=== PATIENT | male | born 1950 | race Caucasian/White ===

== ENCOUNTER 2021-02-08 05:42 | Day surgery (SDC) | payer OTHER ==
[2021-02-07 13:14] VITALS: BMI 28.1
[2021-02-08] MEDS ORDERED: Heparin 10,000 UNITS/ 10 ML VIAL ONE ×2 (06:54→09:55)
[2021-02-08] MEDS ORDERED: Bupivacaine PF 0.5% 30 ML VIAL ONE (06:54)
[2021-02-08] MEDS ORDERED: Lidocaine 1% w/Epinephrine 1:100K 30 ML VIAL ONE (06:54)
[2021-02-08] MEDS ORDERED: Sodium Chloride 0.9% 20 ML ONE ×3 (06:54→11:35)
[2021-02-08] MEDS ORDERED: Lidocaine 1% PF 5 ML VIAL ONE (08:20)
[2021-02-08] MEDS ORDERED: PROPOFOL 200 MG/20 ML VIAL ONE (08:20)
[2021-02-08] MEDS ORDERED: Ondansetron HCl/PF 4 MG/2 ML Vial IVP PRN (08:37)
[2021-02-08] MEDS ORDERED: Promethazine HCl 25 MG/ML VIAL IVPB PRN (08:37)
[2021-02-08] MEDS ORDERED: Promethazine HCl 25 MG/ML VIAL IM PRN (08:37)
[2021-02-08] MEDS ORDERED: Ondansetron PF 4 MG/2 ML Vial IVP PRN (09:06)
[2021-02-08] MEDS ORDERED: Dextrose 50% Abboject 50 ML SYRINGE SLOW IVP PRN (09:06)
[2021-02-08] MEDS ORDERED: hydrALAZINE 20 MG/ML VIAL SLOW IVP PRN (09:06)
[2021-02-08] MEDS ORDERED: HumaLOG 300 UNITS/3 ML VIAL SC PRN ×2 (09:06→09:48)
[2021-02-08] MEDS ORDERED: Dextrose 5% in Water 1,000 ML IV PRN (09:06)
[2021-02-08] MEDS ORDERED: Sodium Chloride 0.9% 10 ML ONE ×2 (10:37→11:16)
[2021-02-08] MEDS ORDERED: Morphine 4 MG/ML VIAL ONE (11:34)
[2021-02-08 11:42] LABS: #Basophils 0.1 thou/uL (0.0-0.2); #Eosinphils 0.2 thou/uL (0.0-0.7); #Lymphocytes 0.9 thou/uL (1.20-3.40); #Monocytes 0.3 thou/uL (0.11-0.59); #Neutrophils 2.8 thou/uL (1.40-6.50); %Basophils 1.3 % (0.0-1.0); %Eosinophils 3.6 % (0.0-10.0); %Lymphocytes 21.7 % (21.0-51.0); %Monocytes 8.1 % (0.0-10.0); %Neutrophils 65.4 % (42.0-75.0); Mean Corpuscular HGB CONC 32.8 g/dL (32.0-36.0); Mean Platelet Volume 8.1 fL (7.4-10.4); Platelet Count 99 thou/uL (130-400); RBC Distribution Width 12.3 % (11.5-14.5); Red Blood Cell (RBC) Count 2.73 mill/uL (4.70-6.10); White Blood Cell (WBC) Count 4.3 thou/uL (4.8-10.8)
[2021-02-08 12:09] LABS: Anion Gap 16 mmol/L (10-20); BUN (Urea Nitrogen) 48 mg/dL (8.4-25.7); Calc. Creatinine Clearance 18 mL/min (70-130); Calcium 8.9 mg/dL (7.8-10.44); Carbon Dioxide 19 mmol/L (23-31); Chloride 109 mmol/L (98-107); Glucose 136 mg/dL (80-115); Potassium 4.9 mmol/L (3.5-5.1); Sodium 139 mmol/L (136-145)
[2021-02-08 12:27] LABS: HBSAg Index 0.32 S/CO (0-0.99); Hep B Surf Ag Non-Reactive S/CO (NonReactive)
[2021-02-08 12:36] LABS: HBSAB Concentration 60.67 mIU/mL; Hep B Surf AB Reactive (NonReactive); Hep C IgG Ab Reflex HepC Qnt (NonReactive); Hep C Index 15.19 S/CO (0-0.79)
[2021-02-08 14:03] LABS: Hep B Core Total Ab Reactive (NonReactive); Hep B Core Total Index 7.66 S/CO (0-0.79)
[2021-02-08] MEDS ORDERED: Benzonatate 100 MG CAP PO SCH (15:00)
[2021-02-08] MEDS ORDERED: hydrALAZINE 25 MG TAB PO SCH (15:00)
[2021-02-08] MEDS ORDERED: Zolpidem Tartrate 5 MG TAB PO SCH (21:00)
[2021-02-08] MEDS ORDERED: Atorvastatin Calcium 40 MG TAB PO SCH (21:00)
[2021-02-08] MEDS ORDERED: Melatonin 3 MG TAB PO SCH (21:00)
[2021-02-08] MEDS ORDERED: cloNIDine 0.1 MG TAB PO SCH (21:00)
[2021-02-08] MEDS ORDERED: Lantus 1000 UNITS/10 ML VIAL SC SCH (21:00)
[2021-02-08] MEDS ORDERED: Heparin 5,000 UNITS/ML VIAL SC SCH (21:00)
[2021-02-09] MEDS ORDERED: Levothyroxine Sodium 125 MCG TAB PO SCH (06:00)
[2021-02-09] MEDS ORDERED: Insulin Glargine 10 UNITS in Pre-Filled Syringe 1 EACH SC SCH (09:00)
[2021-02-09] MEDS ORDERED: Sodium Bicarbonate Tab 325 MG TAB PO SCH (09:00)
[2021-02-09] MEDS ORDERED: Amlodipine 10 MG TAB PO SCH (09:00)
[2021-02-09] MEDS ORDERED: Magnesium Oxide 400 MG TAB PO SCH (09:00)
[2021-02-09] MEDS ORDERED: Clopidogrel Bisulfate 75 MG TAB PO SCH (09:00)
[2021-02-09] MEDS ORDERED: Aspirin Chewable 81 MG TAB PO SCH (09:00)
[2021-02-09] MEDS ORDERED: Tamsulosin HCl 0.4 MG CAP PO SCH (09:00)
[2021-02-09] MEDS ORDERED: Lantus 1000 UNITS/10 ML VIAL SC SCH (09:00)
== END 2021-02-08 19:05 | disposition home or self-care (01) ==
LOC: SDC 05:42
PROVIDERS: ATTEND Specialist
PROC: 05HN33Z Insertion of Infusion Device into Left Internal Jugular Vein, Percutaneous Approach (ICD-10-PCS; principal; 2021-02-08)
PROC: 05HM33Z Insertion of Infusion Device into Right Internal Jugular Vein, Percutaneous Approach (ICD-10-PCS; principal; 2021-02-08)
DX: I13.2 Hypertensive heart and chronic kidney disease with heart failure and with stage 5 chronic kidney disease, or end stage renal disease (principal); E11.22 Type 2 diabetes mellitus with diabetic chronic kidney disease; N18.6 End stage renal disease; I50.9 Heart failure, unspecified; E78.5 Hyperlipidemia, unspecified; I25.10 Atherosclerotic heart disease of native coronary artery without angina pectoris; I25.2 Old myocardial infarction; G47.30 Sleep apnea, unspecified; K74.60 Unspecified cirrhosis of liver; N40.0 Benign prostatic hyperplasia without lower urinary tract symptoms; E78.00 Pure hypercholesterolemia, unspecified; E03.9 Hypothyroidism, unspecified; E87.70 Fluid overload, unspecified; J44.9 Chronic obstructive pulmonary disease, unspecified; M19.90 Unspecified osteoarthritis, unspecified site; Z86.16 Personal history of COVID-19; Z87.891 Personal history of nicotine dependence; Z79.02 Long term (current) use of antithrombotics/antiplatelets; Z79.4 Long term (current) use of insulin; Z79.82 Long term (current) use of aspirin; Z79.899 Other long term (current) drug therapy; Z88.5 Allergy status to narcotic agent; Z95.1 Presence of aortocoronary bypass graft; Z95.5 Presence of coronary angioplasty implant and graft
CPT/HCPCS: 36416; 71045; 80048; 83735; 85025; 86704; 86706; 86803; 87340; 93005; 93010; C1752; J0690; J1644; J2270; J2704; S0020

== ENCOUNTER 2021-02-22 12:08 | Outpatient (CLI) | payer MEDICARE, OTHER ==
[2021-02-23 17:41] LABS: SARS-CoV-2 PCR by NAA Not Detected (NotDetected)
== END 2021-02-22 12:09 | disposition home or self-care (01) ==
LOC: LABBT 12:08
PROVIDERS: ATTEND Specialist
DX: Z01.812 Encounter for preprocedural laboratory examination (principal); N18.6 End stage renal disease; I25.10 Atherosclerotic heart disease of native coronary artery without angina pectoris; Z20.822 Contact with and (suspected) exposure to COVID-19
CPT/HCPCS: U0003; U0005

== ENCOUNTER 2021-02-26 09:42 | Day surgery (SDC) | payer OTHER ==
[2021-02-25 13:57] VITALS: BMI 26.4
[2021-02-26] MEDS ORDERED: ceFAZolin 2 GM/DEX 5% 100 ML BAG ONE (10:33)
[2021-02-26 11:46] LABS: #Eosinphils 0.2 thou/uL (0.0-0.7); #Lymphocytes 0.8 thou/uL (1.20-3.40); #Monocytes 0.4 thou/uL (0.11-0.59); #Neutrophils 2.4 thou/uL (1.40-6.50); %Basophils 1.1 % (0.0-1.0); %Eosinophils 4.2 % (0.0-10.0); %Lymphocytes 20.9 % (21.0-51.0); %Monocytes 11.1 % (0.0-10.0); %Neutrophils 62.7 % (42.0-75.0); Hemoglobin 9.1 g/dL (14.0-18.0); Mean Corpuscular HGB CONC 32.3 g/dL (32.0-36.0); Mean Corpuscular Hemoglobin 32.1 pg (27.0-31.0); Mean Corpuscular Volume 99.5 fL (78.0-98.0); Mean Platelet Volume 8.9 fL (7.4-10.4); Platelet Count 114 thou/uL (130-400); RBC Distribution Width 12.8 % (11.5-14.5); Red Blood Cell (RBC) Count 2.83 mill/uL (4.70-6.10); White Blood Cell (WBC) Count 3.8 thou/uL (4.8-10.8)
[2021-02-26] MEDS ORDERED: Fentanyl 100 MCG/2 ML VIAL ONE (11:54)
[2021-02-26] MEDS ORDERED: SUGAMMADEX SODIUM 200 MG/2 ML VIAL ONE (11:55)
[2021-02-26] MEDS ORDERED: Bupivacaine 0.25% HCL 30 ML VIAL ONE (11:56)
[2021-02-26] MEDS ORDERED: Lidocaine 1% w/Epinephrine 1:100K 20 ML VIAL ONE (11:56)
[2021-02-26] MEDS ORDERED: Heparin 10,000 UNITS/ 10 ML VIAL ONE (11:56)
[2021-02-26 12:00] LABS: BUN (Urea Nitrogen) 21 mg/dL (8.4-25.7); Calc. Creatinine Clearance 26 mL/min (70-130); Calcium 8.7 mg/dL (7.8-10.44); Carbon Dioxide 28 mmol/L (23-31); Chloride 103 mmol/L (98-107); Glucose 135 mg/dL (80-115); Potassium 3.7 mmol/L (3.5-5.1); Sodium 140 mmol/L (136-145)
[2021-02-26] MEDS ORDERED: ePHEDrine 50 MG/ML VIAL ONE (12:01)
[2021-02-26] MEDS ORDERED: Rocuronium Bromide 10 MG/ML (10ML VIAL) ONE (12:01)
[2021-02-26] MEDS ORDERED: Dexamethasone 20 MG/5 ML VIAL ONE (12:01)
[2021-02-26] MEDS ORDERED: Ondansetron PF 4 MG/2 ML Vial ONE (12:01)
[2021-02-26] MEDS ORDERED: Lidocaine 1% PF 5 ML VIAL ONE (12:01)
[2021-02-26] MEDS ORDERED: PROPOFOL 200 MG/20 ML VIAL ONE (12:01)
[2021-02-26] MEDS ORDERED: Glycopyrrolate 0.2 MG/ML 5 ML SYRINGE ONE (12:01)
[2021-02-26 12:03] LABS: Anion Gap 13 mmol/L (10-20)
[2021-02-26] MEDS ORDERED: Promethazine HCl 25 MG/ML VIAL IM PRN (12:58)
[2021-02-26] MEDS ORDERED: Ondansetron HCl/PF 4 MG/2 ML Vial IVP PRN (12:58)
[2021-02-26] MEDS ORDERED: Promethazine HCl 25 MG/ML VIAL IVPB PRN (12:58)
[2021-02-26] MEDS ORDERED: Heparin 1,000 UNITS/ML VIAL ONE (14:14)
== END 2021-02-26 14:34 | disposition home or self-care (01) ==
LOC: SDC 09:42
PROVIDERS: ATTEND Specialist
PROC: 0WHG43Z Insertion of Infusion Device into Peritoneal Cavity, Percutaneous Endoscopic Approach (ICD-10-PCS; principal; 2021-02-26)
DX: I13.11 Hypertensive heart and chronic kidney disease without heart failure, with stage 5 chronic kidney disease, or end stage renal disease (principal); E11.22 Type 2 diabetes mellitus with diabetic chronic kidney disease; N18.6 End stage renal disease; R18.8 Other ascites; I25.10 Atherosclerotic heart disease of native coronary artery without angina pectoris; E78.00 Pure hypercholesterolemia, unspecified; E78.5 Hyperlipidemia, unspecified; J44.9 Chronic obstructive pulmonary disease, unspecified; M19.90 Unspecified osteoarthritis, unspecified site; N40.0 Benign prostatic hyperplasia without lower urinary tract symptoms; Z86.16 Personal history of COVID-19; Z87.891 Personal history of nicotine dependence; Z79.02 Long term (current) use of antithrombotics/antiplatelets; Z79.4 Long term (current) use of insulin; Z79.82 Long term (current) use of aspirin; Z79.899 Other long term (current) drug therapy; Z88.5 Allergy status to narcotic agent; Z95.1 Presence of aortocoronary bypass graft; Z95.5 Presence of coronary angioplasty implant and graft; Z99.2 Dependence on renal dialysis
CPT/HCPCS: 36416; 80048; 85025; J1100; J1644; J2405; J2704; J3010; J3490; S0020

== ENCOUNTER 2022-04-18 13:58 | Inpatient (IN) | payer MEDICARE, OTHER ==
[2022-04-18 14:32] LABS: #Basophils 0.1 thou/uL (0.0-0.2); #Eosinphils 0.2 thou/uL (0.0-0.7); #Lymphocytes 0.7 thou/uL (1.20-3.40); #Monocytes 0.4 thou/uL (0.11-0.59); #Neutrophils 6.2 thou/uL (1.40-6.50); %Basophils 0.7 % (0.0-1.0); %Eosinophils 2.4 % (0.0-10.0); %Lymphocytes 8.7 % (21.0-51.0); %Monocytes 5.8 % (0.0-10.0); %Neutrophils 82.4 % (42.0-75.0); Hemoglobin 6.4 g/dL (14.0-18.0); Mean Corpuscular Hemoglobin 35.2 pg (27.0-31.0); Platelet Count 83 10x3/uL (130-400); RBC Distribution Width 17.5 % (11.5-14.5); Red Blood Cell (RBC) Count 1.83 mill/uL (4.70-6.10); White Blood Cell (WBC) Count 7.5 10x3/uL (4.8-10.8)
[2022-04-18 14:54] LABS: ALT (SGPT) 27 U/L (8-55); AST (SGOT) 34 U/L (5-34); Albumin 3.1 g/dL (3.4-4.8); Alkaline Phosphatase 93 U/L (40-110); Anion Gap 21 mmol/L (10-20); BUN (Urea Nitrogen) 101 mg/dL (8.4-25.7); Bilirubin, Total 0.4 mg/dL (0.2-1.2); Calc. Creatinine Clearance 0 mL/min (70-130); Calcium 8.1 mg/dL (7.8-10.44); Carbon Dioxide 20 mmol/L (23-31); Chloride 96 mmol/L (98-107); Estimated GFR 6; Globulin 3.4 g/dL (2.4-3.5); Lipase 136 U/L (8-78); Potassium 3.7 mmol/L (3.5-5.1); Protein, Total 6.5 g/dL (5.8-8.1); Sodium 133 mmol/L (136-145)
[2022-04-18 15:07] LABS: Glucose 413 mg/dL (83-110)
[2022-04-18] MEDS ORDERED: Epoetin 40,000 UNITS/ML VIAL SC SCH (15:15)
[2022-04-18 15:25] LABS: CKMB 17.9 ng/mL (0-6.6)
[2022-04-18] MEDS ORDERED: Acetaminophen 325 MG TAB PO PRN (16:14)
[2022-04-18] MEDS ORDERED: Dextrose 5% in Water 1,000 ML IV PRN (16:21)
[2022-04-18] MEDS ORDERED: Dextrose 50% Abboject 50 ML SYRINGE SLOW IVP PRN (16:21)
[2022-04-18] MEDS ORDERED: Lactated Ringer's 500 ML IV SCH (16:45)
[2022-04-18] MEDS ORDERED: EPOETIN ALFA-EPBX (ESRD) 10,000 UNIT/ML VIAL SC SCH (18:00)
[2022-04-18 19:05] VITALS: BMI 27.0
[2022-04-18] MEDS ORDERED: Heparin 1,000 UNITS/ML (10 ml) 6,000 UNITS in PERITON.DIALYSIS 7-2.5 % DEXTR 6,000 ML FS SCH (19:30)
[2022-04-18 19:52] LABS: Troponin I 0.873 ng/mL (< 0.028)
[2022-04-18] MEDS: Insulin Glargine 30 UNITS/0.3 ML VIAL SC SCH (21:28)
[2022-04-19] MEDS: cefTRIAXone\\ROCEPHIN 2 GM in Sodium Chloride 0.9% 100 ML IVPB SCH ×2 (00:04→17:10)
[2022-04-19 02:15] LABS: Troponin I 2.158 ng/mL (< 0.028)
[2022-04-19] MEDS: Levothyroxine Sodium 125 MCG TAB PO SCH (05:25)
[2022-04-19] MEDS: HumaLOG 300 UNITS/3 ML VIAL SC PRN ×2 (06:18→17:10)
[2022-04-19 08:16] LABS: #Eosinphils 0.3 thou/uL (0.0-0.7); #Lymphocytes 0.6 thou/uL (1.20-3.40); #Monocytes 0.7 thou/uL (0.11-0.59); #Neutrophils 3.8 thou/uL (1.40-6.50); %Basophils 0.8 % (0.0-1.0); %Lymphocytes 11.6 % (21.0-51.0); %Monocytes 11.9 % (0.0-10.0); %Neutrophils 70.6 % (42.0-75.0); Hemoglobin 8.4 g/dL (14.0-18.0); Mean Corpuscular HGB CONC 33.4 g/dL (32.0-36.0); Mean Corpuscular Hemoglobin 32.8 pg (27.0-31.0); Mean Corpuscular Volume 98.1 fl (78.0-98.0); Mean Platelet Volume 8.4 fL (7.4-10.4); Platelet Count 71 10x3/uL (130-400); RBC Distribution Width 17.6 % (11.5-14.5); Red Blood Cell (RBC) Count 2.57 mill/uL (4.70-6.10); White Blood Cell (WBC) Count 5.4 10x3/uL (4.8-10.8)
[2022-04-19 08:20] LABS: Anion Gap 19 mmol/L (10-20); BUN (Urea Nitrogen) 92 mg/dL (8.4-25.7); BUN/Creatinine Ratio 11.18; CK (CPK) 264 U/L (30-200); Calc. Creatinine Clearance 9 mL/min (70-130); Calcium 8.2 mg/dL (7.8-10.44); Carbon Dioxide 24 mmol/L (23-31); Chloride 101 mmol/L (98-107); Estimated GFR 6; Glucose 134 mg/dL (83-110); Phosphorus 7.4 mg/dL (2.3-4.7); Potassium 3.6 mmol/L (3.5-5.1); Sodium 140 mmol/L (136-145)
[2022-04-19 08:36] LABS: Troponin I 5.234 ng/mL (< 0.028)
[2022-04-19 09:00] LABS: BF Color Colorless; Clarity Clear (Clear); Tube # 1
[2022-04-19 09:01] LABS: RBC Count-Automated (BF) 193 /cu.mm; WBC/Nucleated-Auto (BF) 2672 /cu.mm
[2022-04-19 09:06] LABS: BF Segmented Neutrophils 84 %; Cell Count Non Hematic 4 %; Eosinophils 2 %; Lymphocytes 10 %
[2022-04-19] MEDS: Insulin Glargine 30 UNITS/0.3 ML VIAL SC SCH ×2 (09:08→20:54)
[2022-04-19 11:24] LABS: Iron Binding Capacity, Total 348 mcg/dL (261-462)
[2022-04-19 11:25] LABS: Iron 68 ug/dL (65-175)
[2022-04-19 11:36] LABS: Critical Call Chem Troponin I RESULT DECREASING
[2022-04-19 11:54] LABS: CKMB 19.1 ng/mL (0-6.6)
[2022-04-19] MEDS ORDERED: Pantoprazole 40 MG VIAL IVP SCH (12:45)
[2022-04-19] MEDS ORDERED: Benzonatate 100 MG CAP PO PRN (17:37)
[2022-04-19] MEDS: Pantoprazole 40 MG VIAL IVP SCH (20:56)
[2022-04-20] MEDS: Levothyroxine Sodium 125 MCG TAB PO SCH (05:07)
[2022-04-20 05:11] LABS: #Eosinphils 0.3 thou/uL (0.0-0.7); #Lymphocytes 0.8 thou/uL (1.20-3.40); #Monocytes 0.7 thou/uL (0.11-0.59); #Neutrophils 4.3 thou/uL (1.40-6.50); %Basophils 0.5 % (0.0-1.0); %Eosinophils 5.5 % (0.0-10.0); %Lymphocytes 13.1 % (21.0-51.0); %Neutrophils 68.9 % (42.0-75.0); Hemoglobin 8.6 g/dL (14.0-18.0); Mean Corpuscular HGB CONC 33.2 g/dL (32.0-36.0); Mean Corpuscular Hemoglobin 32.7 pg (27.0-31.0); Mean Corpuscular Volume 98.5 fl (78.0-98.0); Mean Platelet Volume 8.2 fL (7.4-10.4); Platelet Count 80 10x3/uL (130-400); RBC Distribution Width 17.5 % (11.5-14.5); Red Blood Cell (RBC) Count 2.64 mill/uL (4.70-6.10); White Blood Cell (WBC) Count 6.2 10x3/uL (4.8-10.8)
[2022-04-20 05:20] LABS: INR-International Normal Ratio 1.2; Prothrombin Time 15.4 sec (12.0-14.7)
[2022-04-20 05:33] LABS: Anion Gap 22 mmol/L (10-20); BUN (Urea Nitrogen) 90 mg/dL (8.4-25.7); Calc. Creatinine Clearance 10 mL/min (70-130); Calcium 7.8 mg/dL (7.8-10.44); Carbon Dioxide 21 mmol/L (23-31); Chloride 98 mmol/L (98-107); Estimated GFR 7; Glucose 251 mg/dL (83-110); Potassium 3.6 mmol/L (3.5-5.1); Sodium 137 mmol/L (136-145)
[2022-04-20 05:47] LABS: HBSAg Index 0.25 S/CO (0-0.99); Hep B Surf Ag Non-Reactive S/CO (NonReactive)
[2022-04-20 05:51] LABS: HBSAB Concentration 17.82 mIU/mL; Hep B Surf AB Reactive (NonReactive)
[2022-04-20] MEDS: HumaLOG 300 UNITS/3 ML VIAL SC PRN ×2 (06:06→12:56)
[2022-04-20] MEDS: Insulin Glargine 30 UNITS/0.3 ML VIAL SC SCH ×2 (09:31→21:00)
[2022-04-20] MEDS: Pantoprazole 40 MG VIAL IVP SCH ×3 (09:32→21:01)
[2022-04-20] MEDS ORDERED: GoLYTELY 4,000 ml Bottle PO SCH (14:00)
[2022-04-20] MEDS: cefTRIAXone\\ROCEPHIN 2 GM in Sodium Chloride 0.9% 100 ML IVPB SCH (16:56)
[2022-04-20] MEDS: tiZANidine HCl 4 MG TAB PO SCH (21:00)
[2022-04-21] MEDS: Levothyroxine Sodium 125 MCG TAB PO SCH (05:21)
[2022-04-21 05:23] LABS: Anion Gap 21 mmol/L (10-20); BUN (Urea Nitrogen) 81 mg/dL (8.4-25.7); Calc. Creatinine Clearance 10 mL/min (70-130); Calcium 7.5 mg/dL (7.8-10.44); Carbon Dioxide 23 mmol/L (23-31); Chloride 99 mmol/L (98-107); Estimated GFR 7; Glucose 120 mg/dL (83-110); Potassium 2.8 mmol/L (3.5-5.1); Sodium 140 mmol/L (136-145)
[2022-04-21 05:24] LABS: Band 3 % (5-11); Eosinophils 8 % (0-10); Hemoglobin 8.2 g/dL (14.0-18.0); Lymphocytes 14 % (21-51); MDiff Complete? YES; Mean Corpuscular HGB CONC 33.4 g/dL (32.0-36.0); Mean Corpuscular Hemoglobin 32.8 pg (27.0-31.0); Mean Corpuscular Volume 98.2 fl (78.0-98.0); Mean Platelet Volume 8.5 fL (7.4-10.4); Monocytes 11 % (0-10); Myelocyte 1 % (0-0); Neutrophil 63 % (42-75); Platelet Count 76 10x3/uL (130-400); Platelet Morphology Comment Appears Decreased; RBC Distribution Width 16.9 % (11.5-14.5); Red Blood Cell (RBC) Count 2.51 mill/uL (4.70-6.10); White Blood Cell (WBC) Count 4.2 10x3/uL (4.8-10.8)
[2022-04-21] MEDS ORDERED: Potassium Chloride 40 MEQ in Premix Bag 1 BAG IVPB SCH (08:15)
[2022-04-21] MEDS: Pantoprazole 40 MG VIAL IVP SCH ×2 (08:20→21:22)
[2022-04-21] MEDS: Insulin Glargine 30 UNITS/0.3 ML VIAL SC SCH (08:22)
[2022-04-21] MEDS: Potassium Chloride 20 MEQ in Premix Bag 1 BAG IVPB SCH ×2 (08:58→12:34)
[2022-04-21] MEDS ORDERED: PROPOFOL 200 MG/20 ML VIAL ONE (11:23)
[2022-04-21] MEDS ORDERED: ePHEDrine 50 MG/ML VIAL ONE (11:23)
[2022-04-21] MEDS ORDERED: Phenylephrine 10 MG/ML VIAL ONE (11:23)
[2022-04-21] MEDS ORDERED: Promethazine HCl 25 MG/ML VIAL IVPB PRN ×2 (11:44→12:24)
[2022-04-21] MEDS ORDERED: Promethazine HCl 25 MG/ML VIAL IM PRN ×2 (11:44→12:24)
[2022-04-21] MEDS ORDERED: Ondansetron HCl/PF 4 MG/2 ML Vial IVP PRN ×2 (11:44→12:24)
[2022-04-21] MEDS: Calcium Acetate 667 MG CAP PO SCH ×2 (13:27→16:54)
[2022-04-21] MEDS: cefTRIAXone\\ROCEPHIN 2 GM in Sodium Chloride 0.9% 100 ML IVPB SCH (16:55)
[2022-04-21] MEDS: HumaLOG 300 UNITS/3 ML VIAL SC PRN (17:23)
[2022-04-21] MEDS ORDERED: HumaLOG 300 UNITS/3 ML VIAL SC PRN (20:30)
[2022-04-21] MEDS: tiZANidine HCl 4 MG TAB PO SCH (21:23)
[2022-04-22 04:37] LABS: #Eosinphils 0.1 thou/uL (0.0-0.7); #Lymphocytes 0.6 thou/uL (1.20-3.40); #Monocytes 0.5 thou/uL (0.11-0.59); #Neutrophils 3.1 thou/uL (1.40-6.50); %Basophils 0.4 % (0.0-1.0); %Eosinophils 3.1 % (0.0-10.0); %Lymphocytes 13.1 % (21.0-51.0); %Monocytes 11.2 % (0.0-10.0); %Neutrophils 72.2 % (42.0-75.0); Hemoglobin 7.6 g/dL (14.0-18.0); Mean Corpuscular HGB CONC 32.9 g/dL (32.0-36.0); Mean Corpuscular Hemoglobin 32.9 pg (27.0-31.0); Mean Platelet Volume 8.2 fL (7.4-10.4); Platelet Count 69 10x3/uL (130-400); RBC Distribution Width 17.1 % (11.5-14.5); Red Blood Cell (RBC) Count 2.31 mill/uL (4.70-6.10); White Blood Cell (WBC) Count 4.3 10x3/uL (4.8-10.8)
[2022-04-22 04:52] LABS: Anion Gap 17 mmol/L (10-20); BUN (Urea Nitrogen) 75 mg/dL (8.4-25.7); Calc. Creatinine Clearance 10 mL/min (70-130); Carbon Dioxide 22 mmol/L (23-31); Chloride 97 mmol/L (98-107); Potassium 3.1 mmol/L (3.5-5.1); Sodium 133 mmol/L (136-145)
[2022-04-22 04:53] LABS: Calcium 7.1 mg/dL (7.8-10.44); Cardiac Risk 4.1 (Less than 4.5); Cholesterol 99 mg/dl (< 200 Desired); Estimated GFR 7; HDL Cholesterol 24 mg/dL (>60 Neg Risk); LDL Cholesterol, Calculated 55 mg/dL; Triglycerides 99 mg/dL (Less than 150)
[2022-04-22 04:56] LABS: Glucose 486 mg/dL (83-110)
[2022-04-22] MEDS: HumaLOG 300 UNITS/3 ML VIAL SC PRN ×3 (06:30→17:36)
[2022-04-22] MEDS: Levothyroxine Sodium 125 MCG TAB PO SCH (06:33)
[2022-04-22] MEDS: Calcium Acetate 667 MG CAP PO SCH ×3 (08:00→17:35)
[2022-04-22] MEDS ORDERED: Potassium Chloride 40 MEQ in Premix Bag 1 BAG IVPB SCH (08:00)
[2022-04-22] MEDS ORDERED: Regadenoson 0.4 MG/5 ML SYRINGE ONE (08:30)
[2022-04-22 08:52] LABS: Body Fluid Source Peritoneal Fluid
[2022-04-22] MEDS ORDERED: EPOETIN ALFA-EPBX (ESRD) 10,000 UNIT/ML VIAL SC SCH (09:00)
[2022-04-22] MEDS: Insulin Glargine 30 UNITS/0.3 ML VIAL SC SCH ×2 (09:22→21:00)
[2022-04-22] MEDS: Pantoprazole 40 MG VIAL IVP SCH ×2 (09:42→21:01)
[2022-04-22] MEDS: Potassium Chloride 20 MEQ in Premix Bag 1 BAG IVPB SCH ×2 (13:40→14:16)
[2022-04-22] MEDS: cefTRIAXone\\ROCEPHIN 2 GM in Sodium Chloride 0.9% 100 ML IVPB SCH (17:35)
[2022-04-22] MEDS: tiZANidine HCl 4 MG TAB PO SCH (21:01)
[2022-04-23 04:47] LABS: #Basophils 0.1 thou/uL (0.0-0.2); #Eosinphils 0.3 thou/uL (0.0-0.7); #Lymphocytes 0.6 thou/uL (1.20-3.40); #Monocytes 0.5 thou/uL (0.11-0.59); #Neutrophils 2.8 thou/uL (1.40-6.50); %Basophils 1.2 % (0.0-1.0); %Eosinophils 7.3 % (0.0-10.0); %Lymphocytes 14.9 % (21.0-51.0); %Monocytes 10.7 % (0.0-10.0); %Neutrophils 65.9 % (42.0-75.0); Hemoglobin 8.6 g/dL (14.0-18.0); Mean Corpuscular HGB CONC 33.7 g/dL (32.0-36.0); Mean Corpuscular Hemoglobin 34.3 pg (27.0-31.0); Mean Platelet Volume 8.1 fL (7.4-10.4); Platelet Count 71 10x3/uL (130-400); RBC Distribution Width 16.7 % (11.5-14.5); Red Blood Cell (RBC) Count 2.51 mill/uL (4.70-6.10); White Blood Cell (WBC) Count 4.2 10x3/uL (4.8-10.8)
[2022-04-23 04:54] LABS: Anion Gap 18 mmol/L (10-20); BUN (Urea Nitrogen) 69 mg/dL (8.4-25.7); Calc. Creatinine Clearance 10 mL/min (70-130); Calcium 7.9 mg/dL (7.8-10.44); Carbon Dioxide 23 mmol/L (23-31); Chloride 104 mmol/L (98-107); Estimated GFR 7; Glucose 276 mg/dL (83-110); Potassium 3.4 mmol/L (3.5-5.1); Sodium 142 mmol/L (136-145)
[2022-04-23] MEDS: Levothyroxine Sodium 125 MCG TAB PO SCH (05:39)
[2022-04-23] MEDS: HumaLOG 300 UNITS/3 ML VIAL SC PRN ×2 (05:40→12:07)
[2022-04-23] MEDS ORDERED: Potassium Chloride 20 MEQ TAB PO SCH (08:00)
[2022-04-23] MEDS: Calcium Acetate 667 MG CAP PO SCH ×2 (09:52→12:03)
[2022-04-23] MEDS: Insulin Glargine 30 UNITS/0.3 ML VIAL SC SCH (09:53)
[2022-04-23] MEDS: Pantoprazole 40 MG VIAL IVP SCH (09:53)
[2022-04-23 11:51] VITALS: BP 135/63; TEMP 98.1
[2022-04-23] MEDS ORDERED: Benzonatate 100 MG CAP PO PRN (13:35)
[2022-04-23] MEDS ORDERED: CeleCOXIB 100 MG CAP PO PRN (13:51)
[2022-04-23] MEDS ORDERED: Tamsulosin HCl 0.4 MG CAP PO SCH (17:00)
[2022-04-23] MEDS ORDERED: Nortriptyline 10 MG CAP PO SCH (21:00)
[2022-04-23] MEDS ORDERED: Gabapentin 300 MG CAP PO SCH (21:00)
[2022-04-23] MEDS ORDERED: Atorvastatin Calcium 40 MG TAB PO SCH (21:00)
[2022-04-23] MEDS ORDERED: HumuLIN 70/30 (300 UNITS/3 ML VIAL) SC SCH (21:00)
[2022-04-23] MEDS ORDERED: Zolpidem Tartrate 5 MG TAB PO SCH (21:00)
[2022-04-24] MEDS ORDERED: Aspirin Chewable 81 MG TAB PO SCH (09:00)
[2022-04-24] MEDS ORDERED: Calcitriol 0.25 MCG CAP PO SCH (09:00)
[2022-04-24] MEDS ORDERED: Fish Oil 1,000 MG CAP PO SCH (09:00)
[2022-04-24] MEDS ORDERED: Multivitamin W/ Minerals 1 TAB PO SCH (09:00)
[2022-04-24] MEDS ORDERED: Furosemide 40 MG TAB PO SCH (09:00)
[2022-04-24] MEDS ORDERED: HumuLIN 70/30 (300 UNITS/3 ML VIAL) SC SCH (09:00)
== END 2022-04-23 15:30 | disposition home or self-care (01) | DRG 377 ==
LOC: ERS 13:58 → 2NO 16:06
PROVIDERS: ADMIT Hospitalist; ATTEND Internal Medicine
PROC: 30233N1 Transfusion of Nonautologous Red Blood Cells into Peripheral Vein, Percutaneous Approach (ICD-10-PCS; principal; 2022-04-18)
PROC: 0W3P8ZZ Control Bleeding in Gastrointestinal Tract, Via Natural or Artificial Opening Endoscopic (ICD-10-PCS; 2022-04-21)
PROC: 0DJD8ZZ Inspection of Lower Intestinal Tract, Via Natural or Artificial Opening Endoscopic (ICD-10-PCS; 2022-04-21)
DX: K31.811 Angiodysplasia of stomach and duodenum with bleeding (principal); I21.A1 Myocardial infarction type 2; N18.6 End stage renal disease; D62 Acute posthemorrhagic anemia; K76.6 Portal hypertension; I13.2 Hypertensive heart and chronic kidney disease with heart failure and with stage 5 chronic kidney disease, or end stage renal disease; I50.32 Chronic diastolic (congestive) heart failure; I85.10 Secondary esophageal varices without bleeding; D69.6 Thrombocytopenia, unspecified; E11.22 Type 2 diabetes mellitus with diabetic chronic kidney disease; E11.65 Type 2 diabetes mellitus with hyperglycemia; K70.30 Alcoholic cirrhosis of liver without ascites; D63.1 Anemia in chronic kidney disease; K31.89 Other diseases of stomach and duodenum; K57.30 Diverticulosis of large intestine without perforation or abscess without bleeding; K64.4 Residual hemorrhoidal skin tags; K64.8 Other hemorrhoids; I25.10 Atherosclerotic heart disease of native coronary artery without angina pectoris; Z99.2 Dependence on renal dialysis; Z95.1 Presence of aortocoronary bypass graft; Z87.891 Personal history of nicotine dependence; Z79.899 Other long term (current) drug therapy; Z79.51 Long term (current) use of inhaled steroids; Z79.4 Long term (current) use of insulin; Z79.82 Long term (current) use of aspirin; Z95.5 Presence of coronary angioplasty implant and graft; Z90.49 Acquired absence of other specified parts of digestive tract; I25.2 Old myocardial infarction
CPT/HCPCS: 36415; 36416; 36430; 71045; 78452; 80048; 80053; 80061; 80069; 82274; 82550; 82553; 82728; 83540; 83550; 83690; 84484; 85025; 85060; 85610; 86706; 86850; 86900; 86901; 87070; 87205; 87340; 89051; 90945; 93005; 93010; 93017; 93306; 93798; 96372; A9500; C9113; G0257; J0696; J0885; J1610; J1815; J2370; J2704; J2785; J3480; J3490; J7120; P9016; Q5105; U0003; U0005

== ENCOUNTER 2022-08-18 10:53 | Inpatient (IN) | payer OTHER ==
[2022-08-18 11:41] LABS: INR-International Normal Ratio 1.1; Prothrombin Time 14.9 sec (12.0-14.7)
[2022-08-18 11:42] LABS: PTT 31.3 sec (22.9-36.1)
[2022-08-18 11:47] LABS: ALT (SGPT) 19 U/L (8-55); AST (SGOT) 32 U/L (5-34); Albumin 2.8 g/dL (3.4-4.8); Alkaline Phosphatase 100 U/L (40-110); Anion Gap 19 mmol/L (10-20); BUN (Urea Nitrogen) 65 mg/dL (8.4-25.7); Bilirubin, Total 0.4 mg/dL (0.2-1.2); Calc. Creatinine Clearance 0 mL/min (70-130); Carbon Dioxide 18 mmol/L (23-31); Chloride 95 mmol/L (98-107); Estimated GFR 10; Globulin 3.3 g/dL (2.4-3.5); Glucose 288 mg/dL (83-110); Magnesium 1.6 mg/dL (1.6-2.6); Potassium 3.3 mmol/L (3.5-5.1); Protein, Total 6.1 g/dL (5.8-8.1); Sodium 129 mmol/L (136-145)
[2022-08-18 11:55] LABS: Hemoglobin 7.2 g/dL (14.0-18.0); Mean Corpuscular HGB CONC 32.9 g/dL (32.0-36.0); Mean Corpuscular Volume 91.2 fl (78.0-98.0); White Blood Cell (WBC) Count 8.7 10x3/uL (4.8-10.8)
[2022-08-18 11:57] LABS: #Basophils 0.1 thou/uL (0.0-0.2); #Eosinphils 0.2 thou/uL (0.0-0.7); #Lymphocytes 0.6 thou/uL (1.20-3.40); #Monocytes 0.7 thou/uL (0.11-0.59); #Neutrophils 7.2 thou/uL (1.40-6.50); %Basophils 1.2 % (0.0-1.0); %Lymphocytes 6.3 % (21.0-51.0); %Monocytes 7.5 % (0.0-10.0); Mean Platelet Volume 8.9 fL (7.4-10.4); Platelet Count 113 10x3/uL (130-400); Platelet Morphology Comment Appears Decreased
[2022-08-18] MEDS ORDERED: cefTRIAXone (ROCEPHIN) 2 GM VIAL ONE (12:00)
[2022-08-18] MEDS ORDERED: Azithromycin 500 MG VIAL ONE (12:35)
[2022-08-18 13:54] LABS: SARS-CoV-2 NAA Rapid Test Not Detected (NotDetected)
[2022-08-18 14:27] LABS: Lactic Acid 1.4 mmol/L (0.5-2.2)
[2022-08-18] MEDS ORDERED: Pantoprazole 80 MG, Admixture Fee 1 EACH in Sodium Chloride 0.9% 100 ML IVPB SCH (14:30)
[2022-08-18] MEDS ORDERED: Dextrose 5% in Water 1,000 ML IV PRN (14:42)
[2022-08-18] MEDS ORDERED: Acetaminophen 325 MG TAB PO PRN (14:42)
[2022-08-18] MEDS ORDERED: Dextrose 50% Abboject 50 ML SYRINGE SLOW IVP PRN (14:42)
[2022-08-18] MEDS ORDERED: Ondansetron PF 4 MG/2 ML Vial IVP PRN (14:42)
[2022-08-18] MEDS ORDERED: HumaLOG 300 UNITS/3 ML VIAL SC PRN (14:44)
[2022-08-18] MEDS ORDERED: Octreotide Acetate 1,250 MCG in Sodium Chloride 0.9% 250 ML 250 ML IVPB SCH (14:45)
[2022-08-18] MEDS ORDERED: Octreotide Acetate 50 MCG in Sodium Chloride 0.9% 50 ML IVPB SCH (14:45)
[2022-08-18] MEDS ORDERED: Octreotide Acetate 500 MCG/ML VIAL ONE (14:51)
[2022-08-18] MEDS ORDERED: Pantoprazole 40 MG VIAL ONE (14:51)
[2022-08-18] MEDS ORDERED: Potassium Chloride 40 MEQ in Premix Bag 1 BAG IVPB SCH (15:15)
[2022-08-18] MEDS ORDERED: Potassium Chloride 20 MEQ in Premix Bag 1 BAG IVPB SCH (16:30)
[2022-08-18 16:46] VITALS: BMI 25.6
[2022-08-18] MEDS ORDERED: Potassium Chloride 20 MEQ TAB PO SCH (17:45)
[2022-08-18] MEDS ORDERED: Gentamicin TOPICAL Ointment 0.1% 15 gm Tube TOP SCH (20:45)
[2022-08-18] MEDS ORDERED: Nortriptyline 10 MG CAP PO SCH (21:00)
[2022-08-18] MEDS ORDERED: Zolpidem Tartrate 5 MG TAB PO SCH (21:00)
[2022-08-18] MEDS: Atorvastatin Calcium 40 MG TAB PO SCH (21:17)
[2022-08-18] MEDS: Pantoprazole 40 MG VIAL IVP SCH (21:17)
[2022-08-18] MEDS: Gabapentin 300 MG CAP PO SCH (21:18)
[2022-08-18] MEDS: HumuLIN 70/30 (300 UNITS/3 ML VIAL) SC SCH (22:07)
[2022-08-18 23:54] LABS: HBSAg Index 0.22 S/CO (0-0.99); Hep B Surf Ag Non-Reactive S/CO (NonReactive)
[2022-08-19 00:05] LABS: HBSAB Concentration 13.41 mIU/mL; Hep B Core Total Ab Reactive (NonReactive); Hep B Core Total Index 7.61 S/CO (0-0.79); Hep B Surf AB Reactive (NonReactive); Hep C IgG Ab Reflex HepC Qnt (NonReactive)
[2022-08-19 01:21] LABS: Hep C Index 13.41 S/CO (0-0.79)
[2022-08-19 05:42] LABS: #Basophils 0.1 thou/uL (0.0-0.2); #Eosinphils 0.1 thou/uL (0.0-0.7); #Lymphocytes 0.5 thou/uL (1.20-3.40); #Monocytes 0.5 thou/uL (0.11-0.59); #Neutrophils 3.2 thou/uL (1.40-6.50); %Basophils 1.5 % (0.0-1.0); %Eosinophils 3.4 % (0.0-10.0); %Lymphocytes 10.9 % (21.0-51.0); %Monocytes 11.5 % (0.0-10.0); %Neutrophils 72.7 % (42.0-75.0); Hemoglobin 6.5 g/dL (14.0-18.0); Mean Corpuscular HGB CONC 34.1 g/dL (32.0-36.0); Mean Corpuscular Hemoglobin 30.7 pg (27.0-31.0); Mean Corpuscular Volume 89.9 fl (78.0-98.0); Mean Platelet Volume 8.7 fL (7.4-10.4); Platelet Count 86 10x3/uL (130-400); RBC Distribution Width 15.2 % (11.5-14.5); Red Blood Cell (RBC) Count 2.13 mill/uL (4.70-6.10); White Blood Cell (WBC) Count 4.4 10x3/uL (4.8-10.8)
[2022-08-19 05:58] LABS: Anion Gap 15 mmol/L (10-20); BUN (Urea Nitrogen) 62 mg/dL (8.4-25.7); Calc. Creatinine Clearance 13 mL/min (70-130); Calcium 7.6 mg/dL (7.8-10.44); Carbon Dioxide 22 mmol/L (23-31); Chloride 97 mmol/L (98-107); Estimated GFR 11; Glucose 274 mg/dL (83-110); Potassium 3.2 mmol/L (3.5-5.1); Sodium 131 mmol/L (136-145)
[2022-08-19] MEDS: HumaLOG 300 UNITS/3 ML VIAL SC PRN (06:26)
[2022-08-19] MEDS: Calcitriol 0.25 MCG CAP PO SCH (08:20)
[2022-08-19] MEDS: HumuLIN 70/30 (300 UNITS/3 ML VIAL) SC SCH ×2 (08:21→20:58)
[2022-08-19] MEDS: Pantoprazole 40 MG VIAL IVP SCH ×2 (08:22→20:57)
[2022-08-19] MEDS ORDERED: EPOETIN ALFA-EPBX (ESRD) 10,000 UNIT/ML VIAL SC SCH (09:00)
[2022-08-19] MEDS ORDERED: Furosemide 40 MG TAB PO SCH (09:00)
[2022-08-19] MEDS: Nortriptyline 10 MG CAP PO SCH ×2 (11:45→20:57)
[2022-08-19] MEDS: Benzonatate 100 MG CAP PO PRN ×2 (11:45→20:57)
[2022-08-19] MEDS ORDERED: Guaifenesin DM 100-10/5 ML UDCUP PO PRN (15:00)
[2022-08-19 15:50] LABS: Hemoglobin 10.1 g/dL (14.0-18.0)
[2022-08-19] MEDS ORDERED: PERITON DIALYSIS FS SCH (17:00)
[2022-08-19] MEDS ORDERED: HEPARIN FS SCH (17:00)
[2022-08-19] MEDS: Levothyroxine Sodium 125 MCG TAB PO SCH (17:52)
[2022-08-19] MEDS: Tamsulosin HCl 0.4 MG CAP PO SCH (17:52)
[2022-08-19] MEDS: Atorvastatin Calcium 40 MG TAB PO SCH (20:55)
[2022-08-19] MEDS: Gabapentin 300 MG CAP PO SCH (20:56)
[2022-08-19] MEDS: Mirtazapine 15 MG Soltab PO SCH (20:56)
[2022-08-20] MEDS: Gentamicin TOPICAL Ointment 0.1% 15 gm Tube TOP SCH ×2 (01:13→21:43)
[2022-08-20 05:00] LABS: #Eosinphils 0.2 thou/uL (0.0-0.7); #Lymphocytes 0.7 thou/uL (1.20-3.40); #Monocytes 0.8 thou/uL (0.11-0.59); #Neutrophils 4.5 thou/uL (1.40-6.50); %Basophils 0.1 % (0.0-1.0); %Eosinophils 3.8 % (0.0-10.0); %Lymphocytes 11.7 % (21.0-51.0); %Monocytes 12.4 % (0.0-10.0); Hemoglobin 8.8 g/dL (14.0-18.0); Mean Corpuscular Volume 88.4 fl (78.0-98.0); Platelet Count 97 10x3/uL (130-400); RBC Distribution Width 15.8 % (11.5-14.5); Red Blood Cell (RBC) Count 2.93 mill/uL (4.70-6.10); White Blood Cell (WBC) Count 6.2 10x3/uL (4.8-10.8)
[2022-08-20 05:17] LABS: Anion Gap 15 mmol/L (10-20); BUN (Urea Nitrogen) 58 mg/dL (8.4-25.7); Calc. Creatinine Clearance 13 mL/min (70-130); Calcium 7.8 mg/dL (7.8-10.44); Carbon Dioxide 24 mmol/L (23-31); Chloride 96 mmol/L (98-107); Estimated GFR 10; Glucose 82 mg/dL (83-110); Potassium 3.5 mmol/L (3.5-5.1); Sodium 131 mmol/L (136-145)
[2022-08-20] MEDS ORDERED: PROPOFOL 200 MG/20 ML VIAL ONE (09:46)
[2022-08-20] MEDS ORDERED: ePHEDrine 50 MG/ML VIAL ONE (09:46)
[2022-08-20] MEDS ORDERED: Lidocaine 1% PF 5 ML VIAL ONE (09:46)
[2022-08-20] MEDS ORDERED: Phenylephrine 10 MG/ML VIAL ONE (09:46)
[2022-08-20] MEDS ORDERED: Ondansetron HCl/PF 4 MG/2 ML Vial IVP PRN (10:23)
[2022-08-20] MEDS ORDERED: Promethazine HCl 25 MG/ML VIAL IM PRN (10:23)
[2022-08-20] MEDS ORDERED: Ipratropium/Albuterol 3 ML NEB ONE (10:27)
[2022-08-20] MEDS ORDERED: Ipratropium/Albuterol 3 ML NEB NEB SCH (10:30)
[2022-08-20] MEDS: Pantoprazole 40 MG VIAL IVP SCH ×2 (12:10→22:10)
[2022-08-20] MEDS: Calcitriol 0.25 MCG CAP PO SCH (12:14)
[2022-08-20] MEDS: Nortriptyline 10 MG CAP PO SCH ×2 (12:15→21:42)
[2022-08-20] MEDS ORDERED: Fentanyl 100 MCG/2 ML VIAL SLOW IVP PRN (12:29)
[2022-08-20] MEDS ORDERED: FENTANYL 50 MCG/ML 1 ML VIAL SLOW IVP PRN (13:45)
[2022-08-20] MEDS: HumuLIN 70/30 (300 UNITS/3 ML VIAL) SC SCH ×2 (13:46→21:52)
[2022-08-20] MEDS ORDERED: PERIT DIALYSIS NO 6 FS SCH ×2 (14:00→14:15)
[2022-08-20] MEDS ORDERED: DEX FS SCH ×2 (14:00→14:15)
[2022-08-20] MEDS ORDERED: HEPARIN FS SCH ×3 (14:00→14:15)
[2022-08-20] MEDS ORDERED: PERITON DIALYSIS FS SCH (14:15)
[2022-08-20 16:50] LABS: Hemoglobin 8.4 g/dL (14.0-18.0)
[2022-08-20] MEDS: Levothyroxine Sodium 125 MCG TAB PO SCH (17:33)
[2022-08-20] MEDS: Tamsulosin HCl 0.4 MG CAP PO SCH (17:33)
[2022-08-20] MEDS: HumaLOG 300 UNITS/3 ML VIAL SC PRN (17:34)
[2022-08-20] MEDS ORDERED: FENTANYL 50 MCG/ML 1 ML VIAL SLOW IVP SCH (21:00)
[2022-08-20] MEDS: Atorvastatin Calcium 40 MG TAB PO SCH (21:42)
[2022-08-20] MEDS: Gabapentin 300 MG CAP PO SCH (21:42)
[2022-08-20] MEDS: Mirtazapine 15 MG Soltab PO SCH (21:42)
[2022-08-20 22:47] LABS: RBC Count-Automated (BF) 0 /cu.mm; WBC/Nucleated-Auto (BF) 521 /cu.mm
[2022-08-20 22:54] LABS: BF Color Colorless; Body Fluid Source Ascites Body Fluid; Clarity Clear (Clear); Tube # 1
[2022-08-20 23:47] LABS: BF Segmented Neutrophils 83 %; Cell Count Non Hematic 3 %; Lymphocytes 14 %
[2022-08-21 04:49] LABS: Mean Corpuscular HGB CONC 31.8 g/dL (32.0-36.0); Mean Corpuscular Hemoglobin 28.1 pg (27.0-31.0); Mean Corpuscular Volume 88.5 fl (78.0-98.0); Mean Platelet Volume 8.1 fL (7.4-10.4); Platelet Count 109 10x3/uL (130-400); RBC Distribution Width 15.9 % (11.5-14.5); Red Blood Cell (RBC) Count 3.22 mill/uL (4.70-6.10); White Blood Cell (WBC) Count 6.7 10x3/uL (4.8-10.8)
[2022-08-21 05:07] LABS: Anion Gap 14 mmol/L (10-20); BUN (Urea Nitrogen) 57 mg/dL (8.4-25.7); Calc. Creatinine Clearance 13 mL/min (70-130); Carbon Dioxide 24 mmol/L (23-31); Chloride 93 mmol/L (98-107); Estimated GFR 11; Glucose 146 mg/dL (83-110); Potassium 2.9 mmol/L (3.5-5.1); Sodium 128 mmol/L (136-145)
[2022-08-21] MEDS ORDERED: Potassium Chloride 20 MEQ TAB PO SCH ×2 (08:15→08:30)
[2022-08-21] MEDS: Potassium Chloride 20 MEQ in Premix Bag 1 BAG IVPB SCH ×2 (09:46→17:33)
[2022-08-21] MEDS: Pantoprazole 40 MG VIAL IVP SCH ×2 (09:48→21:38)
[2022-08-21] MEDS: HumuLIN 70/30 (300 UNITS/3 ML VIAL) SC SCH ×2 (09:49→21:38)
[2022-08-21] MEDS: Calcitriol 0.25 MCG CAP PO SCH (09:52)
[2022-08-21] MEDS: Benzonatate 100 MG CAP PO PRN (10:59)
[2022-08-21 16:16] LABS: Hep C PCR-Quant HCV Not Detected IU/mL (.)
[2022-08-21] MEDS: Tamsulosin HCl 0.4 MG CAP PO SCH (16:38)
[2022-08-21] MEDS: Levothyroxine Sodium 125 MCG TAB PO SCH (16:38)
[2022-08-21] MEDS: HumaLOG 300 UNITS/3 ML VIAL SC PRN (16:48)
[2022-08-21] MEDS: Atorvastatin Calcium 40 MG TAB PO SCH (21:37)
[2022-08-21] MEDS: Mirtazapine 15 MG Soltab PO SCH (21:38)
[2022-08-21] MEDS: Nortriptyline 10 MG CAP PO SCH (21:38)
[2022-08-21] MEDS: Gabapentin 300 MG CAP PO SCH (21:38)
[2022-08-21] MEDS: Gentamicin TOPICAL Ointment 0.1% 15 gm Tube TOP SCH (21:53)
[2022-08-22 04:28] LABS: #Eosinphils 0.2 thou/uL (0.0-0.7); #Lymphocytes 0.5 thou/uL (1.20-3.40); #Monocytes 0.7 thou/uL (0.11-0.59); #Neutrophils 3.7 thou/uL (1.40-6.50); %Basophils 0.3 % (0.0-1.0); %Eosinophils 3.7 % (0.0-10.0); %Lymphocytes 9.6 % (21.0-51.0); %Monocytes 12.7 % (0.0-10.0); %Neutrophils 73.5 % (42.0-75.0); Hemoglobin 8.3 g/dL (14.0-18.0); Mean Corpuscular HGB CONC 34.3 g/dL (32.0-36.0); Mean Corpuscular Volume 87.4 fl (78.0-98.0); Platelet Count 88 10x3/uL (130-400); RBC Distribution Width 15.9 % (11.5-14.5); Red Blood Cell (RBC) Count 2.77 mill/uL (4.70-6.10); White Blood Cell (WBC) Count 5.1 10x3/uL (4.8-10.8)
[2022-08-22 04:47] LABS: Anion Gap 13 mmol/L (10-20); BUN (Urea Nitrogen) 57 mg/dL (8.4-25.7); Calc. Creatinine Clearance 13 mL/min (70-130); Calcium 7.8 mg/dL (7.8-10.44); Carbon Dioxide 22 mmol/L (23-31); Chloride 96 mmol/L (98-107); Estimated GFR 11; Glucose 222 mg/dL (83-110); Potassium 3.6 mmol/L (3.5-5.1); Sodium 127 mmol/L (136-145)
[2022-08-22] MEDS: HumaLOG 300 UNITS/3 ML VIAL SC PRN (05:56)
[2022-08-22 09:02] VITALS: BP 116/61; TEMP 97.8
[2022-08-22] MEDS: Pantoprazole 40 MG VIAL IVP SCH (10:37)
[2022-08-22] MEDS: Calcitriol 0.25 MCG CAP PO SCH (10:37)
[2022-08-22] MEDS: HumuLIN 70/30 (300 UNITS/3 ML VIAL) SC SCH (10:38)
== END 2022-08-22 12:25 | disposition home or self-care (01) | DRG 377 ==
LOC: ERS 10:53 → 2NO 16:10
PROVIDERS: ADMIT Internal Medicine; ATTEND Internal Medicine
PROC: 3E1M39Z Irrigation of Peritoneal Cavity using Dialysate, Percutaneous Approach (ICD-10-PCS; 2022-08-18)
PROC: 30233N1 Transfusion of Nonautologous Red Blood Cells into Peripheral Vein, Percutaneous Approach (ICD-10-PCS; 2022-08-19)
PROC: 0W3P8ZZ Control Bleeding in Gastrointestinal Tract, Via Natural or Artificial Opening Endoscopic (ICD-10-PCS; principal; 2022-08-20)
PROC: 0DB38ZX Excision of Lower Esophagus, Via Natural or Artificial Opening Endoscopic, Diagnostic (ICD-10-PCS; 2022-08-20)
DX: K31.811 Angiodysplasia of stomach and duodenum with bleeding (principal); N18.6 End stage renal disease; D62 Acute posthemorrhagic anemia; K76.6 Portal hypertension; B37.81 Candidal esophagitis; I13.2 Hypertensive heart and chronic kidney disease with heart failure and with stage 5 chronic kidney disease, or end stage renal disease; I85.10 Secondary esophageal varices without bleeding; Z20.822 Contact with and (suspected) exposure to COVID-19; K31.89 Other diseases of stomach and duodenum; E87.6 Hypokalemia; K70.30 Alcoholic cirrhosis of liver without ascites; D69.6 Thrombocytopenia, unspecified; E87.70 Fluid overload, unspecified; E11.22 Type 2 diabetes mellitus with diabetic chronic kidney disease; E78.5 Hyperlipidemia, unspecified; I25.10 Atherosclerotic heart disease of native coronary artery without angina pectoris; E03.9 Hypothyroidism, unspecified; I50.9 Heart failure, unspecified; D63.1 Anemia in chronic kidney disease; Z79.82 Long term (current) use of aspirin; Z79.4 Long term (current) use of insulin; Z88.5 Allergy status to narcotic agent; Z99.2 Dependence on renal dialysis; Z88.6 Allergy status to analgesic agent; Z79.899 Other long term (current) drug therapy; Z79.890 Hormone replacement therapy; Z87.891 Personal history of nicotine dependence; Z95.1 Presence of aortocoronary bypass graft
CPT/HCPCS: 36415; 36416; 36430; 71045; 74176; 80048; 80053; 82553; 83605; 83735; 83880; 84484; 85025; 85027; 85060; 85610; 85730; 86704; 86850; 86900; 86901; 87040; 87070; 87205; 87522; 88305; 89051; 90945; 93005; 94640; 96361; 96365; 96367; 96374; C9113; G0257; J0456; J0696; J1644; J1815; J2354; J2370; J2405; J2704; J3010; J3480; J3490; J7050; J7620; P9016; Q5105

== ENCOUNTER 2022-09-01 09:50 | Inpatient (IN) | payer OTHER ==
[~2022-09-01 09:50] MED LIST: Iopamidol-370 76% 500 ML MDV (1 ML CHARGE) ONE
[2022-09-01 10:28] LABS: #Eosinphils 0.1 thou/uL (0.0-0.7); #Lymphocytes 0.4 thou/uL (1.20-3.40); #Monocytes 0.6 thou/uL (0.11-0.59); %Basophils 0.4 % (0.0-1.0); %Eosinophils 0.6 % (0.0-10.0); %Lymphocytes 3.9 % (21.0-51.0); %Monocytes 5.9 % (0.0-10.0); %Neutrophils 89.1 % (42.0-75.0); Hemoglobin 10.2 g/dL (14.0-18.0); Mean Corpuscular HGB CONC 32.6 g/dL (32.0-36.0); Mean Corpuscular Hemoglobin 28.4 pg (27.0-31.0); Mean Corpuscular Volume 87.3 fl (78.0-98.0); Mean Platelet Volume 8.1 fL (7.4-10.4); Platelet Count 152 10x3/uL (130-400); RBC Distribution Width 16.8 % (11.5-14.5); White Blood Cell (WBC) Count 10.1 10x3/uL (4.8-10.8)
[2022-09-01 10:58] LABS: ALT (SGPT) 54 U/L (8-55); AST (SGOT) 128 U/L (5-34); Albumin 2.8 g/dL (3.4-4.8); Alkaline Phosphatase 219 U/L (40-110); Anion Gap 20 mmol/L (10-20); BUN (Urea Nitrogen) 48 mg/dL (8.4-25.7); Bilirubin, Total 0.7 mg/dL (0.2-1.2); Calc. Creatinine Clearance 0 mL/min (70-130); Calcium 7.8 mg/dL (7.8-10.44); Carbon Dioxide 19 mmol/L (23-31); Chloride 93 mmol/L (98-107); Estimated GFR 10; Globulin 4.1 g/dL (2.4-3.5); Glucose 165 mg/dL (83-110); Lipase 41 U/L (8-78); Magnesium 1.6 mg/dL (1.6-2.6); Potassium 4.3 mmol/L (3.5-5.1); Protein, Total 6.9 g/dL (5.8-8.1); Sodium 128 mmol/L (136-145)
[2022-09-01] MEDS ORDERED: fentaNYL 50 mcg/mL 1 mL Vial ONE (11:11)
[2022-09-01] MEDS ORDERED: Piperacillin/Tazobactam 4.5 GM VIAL ONE (11:18)
[2022-09-01] MEDS ORDERED: Morphine 4 MG/ML VIAL ONE (12:08)
[2022-09-01] MEDS ORDERED: Vancomycin 1 GM/200 ML (FROZEN) BAG ONE (12:34)
[2022-09-01] MEDS ORDERED: Sodium Chloride 0.9% 1,000 ML IV SCH (15:45)
[2022-09-01] MEDS ORDERED: Ondansetron ODT 4 MG TAB PO PRN (16:34)
[2022-09-01] MEDS ORDERED: Ondansetron PF 4 MG/2 ML Vial IVP PRN (16:34)
[2022-09-01] MEDS ORDERED: Loperamide HCl 2 MG CAP PO PRN (16:34)
[2022-09-01] MEDS ORDERED: HumaLOG 300 UNITS/3 ML VIAL SC PRN (16:34)
[2022-09-01] MEDS ORDERED: Dextrose 50% Abboject 50 ML SYRINGE SLOW IVP PRN (16:34)
[2022-09-01] MEDS ORDERED: hydrALAZINE 20 MG/ML VIAL SLOW IVP PRN (16:34)
[2022-09-01] MEDS ORDERED: Dextrose 5% in Water 1,000 ML IV PRN (16:34)
[2022-09-01] MEDS: Piperacillin/Tazobactam 3.375 GM in Sodium Chloride 0.9% 100 ML IVPB SCH (18:11)
[2022-09-01] MEDS: Tamsulosin HCl 0.4 MG CAP PO SCH (18:12)
[2022-09-01] MEDS: Morphine 4 MG/ML VIAL SLOW IVP PRN (18:12)
[2022-09-01] MEDS: Acetaminophen 500 MG TAB PO PRN (20:22)
[2022-09-01] MEDS: Carvedilol 25 MG TAB PO SCH (20:23)
[2022-09-01] MEDS: Gabapentin 100 MG CAP PO SCH (20:23)
[2022-09-01] MEDS: guaiFENesin/DM ER PO SCH (20:23)
[2022-09-01] MEDS: Mirtazapine 15 MG Soltab PO SCH (20:24)
[2022-09-01] MEDS: HumuLIN 70/30 (300 UNITS/3 ML VIAL) SC SCH (21:24)
[2022-09-01] MEDS ORDERED: Piperacillin/Tazobactam 2.25 GM in Sodium Chloride 0.9% 100 ML IVPB SCH (22:00)
[2022-09-02] MEDS ORDERED: Midodrine HCl 5 MG TAB PO SCH (00:45)
[2022-09-02 05:10] LABS: ALT (SGPT) 38 U/L (8-55); AST (SGOT) 85 U/L (5-34); Alkaline Phosphatase 181 U/L (40-110); Anion Gap 11 mmol/L (10-20); BUN (Urea Nitrogen) 45 mg/dL (8.4-25.7); Bilirubin, Total 0.3 mg/dL (0.2-1.2); Calc. Creatinine Clearance 12 mL/min (70-130); Calcium 7.6 mg/dL (7.8-10.44); Carbon Dioxide 27 mmol/L (23-31); Chloride 93 mmol/L (98-107); Estimated GFR 10; Globulin 3.3 g/dL (2.4-3.5); Glucose 97 mg/dL (83-110); Potassium 4.1 mmol/L (3.5-5.1); Protein, Total 5.3 g/dL (5.8-8.1); Sodium 127 mmol/L (136-145)
[2022-09-02] MEDS: Levothyroxine Sodium 125 MCG TAB PO SCH (05:20)
[2022-09-02] MEDS: Piperacillin/Tazobactam 3.375 GM in Sodium Chloride 0.9% 100 ML IVPB SCH ×2 (05:20→17:30)
[2022-09-02 07:14] LABS: #Basophils 0.1 thou/uL (0.0-0.2); #Eosinphils 0.1 thou/uL (0.0-0.7); #Lymphocytes 0.4 thou/uL (1.20-3.40); #Monocytes 0.7 thou/uL (0.11-0.59); #Neutrophils 3.4 thou/uL (1.40-6.50); %Basophils 1.6 % (0.0-1.0); %Eosinophils 2.3 % (0.0-10.0); %Monocytes 13.9 % (0.0-10.0); %Neutrophils 73.2 % (42.0-75.0); Hemoglobin 7.1 g/dL (14.0-18.0); Mean Corpuscular HGB CONC 31.5 g/dL (32.0-36.0); Mean Corpuscular Hemoglobin 27.9 pg (27.0-31.0); Mean Corpuscular Volume 88.6 fl (78.0-98.0); Mean Platelet Volume 7.6 fL (7.4-10.4); Platelet Count 109 10x3/uL (130-400); RBC Distribution Width 16.5 % (11.5-14.5); Red Blood Cell (RBC) Count 2.55 mill/uL (4.70-6.10); White Blood Cell (WBC) Count 4.7 10x3/uL (4.8-10.8)
[2022-09-02] MEDS ORDERED: EPOETIN ALFA-EPBX (ESRD) 10,000 UNIT/ML VIAL SC SCH (09:00)
[2022-09-02] MEDS: Calcitriol 0.25 MCG CAP PO SCH (09:07)
[2022-09-02] MEDS: Nortriptyline 10 MG CAP PO SCH (09:07)
[2022-09-02] MEDS: Carvedilol 25 MG TAB PO SCH ×2 (09:07→21:22)
[2022-09-02] MEDS: Aspirin Chewable 81 MG TAB PO SCH (09:07)
[2022-09-02] MEDS: guaiFENesin/DM ER PO SCH ×2 (09:08→21:21)
[2022-09-02] MEDS: HumuLIN 70/30 (300 UNITS/3 ML VIAL) SC SCH ×2 (09:08→21:23)
[2022-09-02] MEDS: Acetaminophen 500 MG TAB PO PRN ×2 (09:12→21:21)
[2022-09-02] MEDS ORDERED: HEPARIN FS SCH ×2 (09:30)
[2022-09-02] MEDS ORDERED: PERITON DIALYSIS FS SCH (09:30)
[2022-09-02] MEDS ORDERED: DEX FS SCH (09:30)
[2022-09-02] MEDS ORDERED: PERIT DIALYSIS NO 6 FS SCH (09:30)
[2022-09-02 11:42] LABS: RBC Count-Automated (BF) 67 /cu.mm; WBC/Nucleated-Auto (BF) 123 /cu.mm
[2022-09-02 11:44] LABS: Hemoglobin 7.7 g/dL (14.0-18.0); Platelet Count 101 10x3/uL (130-400)
[2022-09-02 12:12] LABS: BF Color Colorless; Body Fluid Source Peritoneal Fluid; Clarity Clear (Clear); Tube # EDTA
[2022-09-02 12:13] LABS: BF Segmented Neutrophils 61 %; Cell Count Non Hematic 23 %; Lymphocytes 16 %
[2022-09-02] MEDS: Tamsulosin HCl 0.4 MG CAP PO SCH (17:30)
[2022-09-02] MEDS: Gabapentin 100 MG CAP PO SCH (21:21)
[2022-09-02] MEDS: Mirtazapine 15 MG Soltab PO SCH (21:21)
[2022-09-03] MEDS: Piperacillin/Tazobactam 3.375 GM in Sodium Chloride 0.9% 100 ML IVPB SCH (05:04)
[2022-09-03] MEDS: Levothyroxine Sodium 125 MCG TAB PO SCH (05:04)
[2022-09-03 08:59] LABS: #Eosinphils 0.2 thou/uL (0.0-0.7); #Lymphocytes 0.5 thou/uL (1.20-3.40); #Monocytes 0.5 thou/uL (0.11-0.59); #Neutrophils 2.7 thou/uL (1.40-6.50); %Basophils 0.7 % (0.0-1.0); %Eosinophils 4.2 % (0.0-10.0); %Lymphocytes 13.9 % (21.0-51.0); %Monocytes 12.1 % (0.0-10.0); %Neutrophils 69.1 % (42.0-75.0); Hemoglobin 10.4 g/dL (14.0-18.0); Mean Corpuscular HGB CONC 33.7 g/dL (32.0-36.0); Mean Corpuscular Volume 86.1 fl (78.0-98.0); Platelet Count 99 10x3/uL (130-400); RBC Distribution Width 16.2 % (11.5-14.5); Red Blood Cell (RBC) Count 3.59 mill/uL (4.70-6.10); White Blood Cell (WBC) Count 3.9 10x3/uL (4.8-10.8)
[2022-09-03 09:16] LABS: ALT (SGPT) 42 U/L (8-55); AST (SGOT) 83 U/L (5-34); Albumin 2.3 g/dL (3.4-4.8); Alkaline Phosphatase 233 U/L (40-110); Anion Gap 16 mmol/L (10-20); BUN (Urea Nitrogen) 43 mg/dL (8.4-25.7); Bilirubin, Total 0.5 mg/dL (0.2-1.2); Calc. Creatinine Clearance 12 mL/min (70-130); Calcium 8.3 mg/dL (7.8-10.44); Carbon Dioxide 24 mmol/L (23-31); Chloride 92 mmol/L (98-107); Estimated GFR 10; Globulin 4.2 g/dL (2.4-3.5); Glucose 63 mg/dL (83-110); Potassium 3.3 mmol/L (3.5-5.1); Protein, Total 6.5 g/dL (5.8-8.1); Sodium 129 mmol/L (136-145)
[2022-09-03] MEDS ORDERED: PROPOFOL 200 MG/20 ML VIAL ONE (10:23)
[2022-09-03] MEDS ORDERED: Lidocaine 1% PF 5 ML VIAL ONE (10:23)
[2022-09-03] MEDS ORDERED: ePHEDrine Sulfate 50 MG/10 ML VIAL ONE (10:23)
[2022-09-03] MEDS ORDERED: Dextrose 50% Abboject 50 ML SYRINGE ONE (10:28)
[2022-09-03] MEDS: Calcitriol 0.25 MCG CAP PO SCH (11:42)
[2022-09-03] MEDS: Aspirin Chewable 81 MG TAB PO SCH (11:43)
[2022-09-03] MEDS: Nortriptyline 10 MG CAP PO SCH ×2 (11:43→21:48)
[2022-09-03] MEDS: Carvedilol 25 MG TAB PO SCH ×2 (11:44→21:30)
[2022-09-03] MEDS: guaiFENesin/DM ER PO SCH ×2 (11:44→21:31)
[2022-09-03] MEDS: HumuLIN 70/30 (300 UNITS/3 ML VIAL) SC SCH ×2 (11:58→21:46)
[2022-09-03] MEDS ORDERED: Sucralfate 1 GM/10 ML UDCUP PO SCH (12:15)
[2022-09-03] MEDS: Morphine 4 MG/ML VIAL SLOW IVP PRN ×2 (14:47→18:41)
[2022-09-03] MEDS: HumaLOG 300 UNITS/3 ML VIAL SC PRN (17:17)
[2022-09-03] MEDS: Tamsulosin HCl 0.4 MG CAP PO SCH (17:17)
[2022-09-03] MEDS: Sucralfate 1 GM/10 ML UDCUP PO SCH (17:17)
[2022-09-03] MEDS: Gabapentin 100 MG CAP PO SCH (21:46)
[2022-09-03] MEDS: Mirtazapine 15 MG Soltab PO SCH (21:47)
[2022-09-03] MEDS: Pantoprazole 40 MG VIAL IVP SCH (21:48)
[2022-09-04] MEDS: Sucralfate 1 GM/10 ML UDCUP PO SCH ×2 (02:29→06:00)
[2022-09-04 03:58] LABS: #Eosinphils 0.2 thou/uL (0.0-0.7); #Lymphocytes 0.5 thou/uL (1.20-3.40); #Monocytes 0.6 thou/uL (0.11-0.59); #Neutrophils 3.4 thou/uL (1.40-6.50); %Eosinophils 4.4 % (0.0-10.0); %Monocytes 12.1 % (0.0-10.0); %Neutrophils 72.5 % (42.0-75.0); Hemoglobin 10.2 g/dL (14.0-18.0); Mean Corpuscular HGB CONC 36.3 g/dL (32.0-36.0); Mean Corpuscular Hemoglobin 31.5 pg (27.0-31.0); Mean Corpuscular Volume 86.7 fl (78.0-98.0); Platelet Count 82 10x3/uL (130-400); RBC Distribution Width 16.3 % (11.5-14.5); Red Blood Cell (RBC) Count 3.24 mill/uL (4.70-6.10); White Blood Cell (WBC) Count 4.7 10x3/uL (4.8-10.8)
[2022-09-04 04:17] LABS: Anion Gap 15 mmol/L (10-20); BUN (Urea Nitrogen) 41 mg/dL (8.4-25.7); Calc. Creatinine Clearance 13 mL/min (70-130); Calcium 7.6 mg/dL (7.8-10.44); Carbon Dioxide 24 mmol/L (23-31); Chloride 94 mmol/L (98-107); Estimated GFR 10; Glucose 131 mg/dL (83-110); Potassium 3.2 mmol/L (3.5-5.1); Sodium 130 mmol/L (136-145)
[2022-09-04 05:47] VITALS: BMI 25.2
[2022-09-04] MEDS: Levothyroxine Sodium 125 MCG TAB PO SCH (06:00)
[2022-09-04] MEDS ORDERED: Potassium Chloride 20 MEQ TAB PO SCH (09:15)
[2022-09-04] MEDS: Pantoprazole 40 MG VIAL IVP SCH ×2 (09:54→20:47)
[2022-09-04] MEDS: HumuLIN 70/30 (300 UNITS/3 ML VIAL) SC SCH ×2 (09:54→20:37)
[2022-09-04] MEDS: Calcitriol 0.25 MCG CAP PO SCH (09:54)
[2022-09-04] MEDS: guaiFENesin/DM ER PO SCH ×2 (09:54→20:33)
[2022-09-04] MEDS: Aspirin Chewable 81 MG TAB PO SCH (09:54)
[2022-09-04] MEDS: HumaLOG 300 UNITS/3 ML VIAL SC PRN (11:29)
[2022-09-04] MEDS: Morphine 4 MG/ML VIAL SLOW IVP PRN (12:08)
[2022-09-04] MEDS ORDERED: GUAIFENESIN SF SOLN 200 MG/10 ML UDCUP PO PRN (15:07)
[2022-09-04] MEDS ORDERED: Morphine 4 MG/ML VIAL SLOW IVP PRN (15:08)
[2022-09-04] MEDS: HYDROcodone/Acetaminophen 10/325 mg Tablet PO PRN (15:49)
[2022-09-04] MEDS: Tamsulosin HCl 0.4 MG CAP PO SCH (15:51)
[2022-09-04] MEDS ORDERED: Carvedilol 6.25 MG TAB PO SCH (17:00)
[2022-09-04] MEDS: Gabapentin 100 MG CAP PO SCH (20:31)
[2022-09-04] MEDS: Mirtazapine 15 MG Soltab PO SCH (20:33)
[2022-09-04] MEDS: Nortriptyline 10 MG CAP PO SCH (20:33)
[2022-09-04] MEDS: Acetaminophen 500 MG TAB PO PRN (20:33)
[2022-09-05] MEDS: Levothyroxine Sodium 125 MCG TAB PO SCH (06:25)
[2022-09-05] MEDS: HYDROcodone/Acetaminophen 10/325 mg Tablet PO PRN (06:25)
[2022-09-05] MEDS: HumaLOG 300 UNITS/3 ML VIAL SC PRN ×2 (06:34→18:02)
[2022-09-05] MEDS: Calcitriol 0.25 MCG CAP PO SCH (09:02)
[2022-09-05] MEDS: HumuLIN 70/30 (300 UNITS/3 ML VIAL) SC SCH ×2 (09:03→21:34)
[2022-09-05] MEDS: Pantoprazole 40 MG VIAL IVP SCH ×2 (09:03→21:30)
[2022-09-05] MEDS: guaiFENesin/DM ER PO SCH ×2 (09:07→21:26)
[2022-09-05] MEDS: Mirtazapine 15 MG Soltab PO SCH (21:26)
[2022-09-05] MEDS: Gabapentin 100 MG CAP PO SCH (21:27)
[2022-09-05] MEDS: Nortriptyline 10 MG CAP PO SCH (22:00)
[2022-09-06] MEDS: Levothyroxine Sodium 125 MCG TAB PO SCH (04:52)
[2022-09-06 08:02] LABS: #Eosinphils 0.2 thou/uL (0.0-0.7); #Lymphocytes 0.6 thou/uL (1.20-3.40); #Monocytes 0.5 thou/uL (0.11-0.59); #Neutrophils 3.3 thou/uL (1.40-6.50); %Basophils 0.6 % (0.0-1.0); %Eosinophils 3.5 % (0.0-10.0); %Lymphocytes 12.2 % (21.0-51.0); %Monocytes 11.8 % (0.0-10.0); %Neutrophils 71.8 % (42.0-75.0); Hemoglobin 9.2 g/dL (14.0-18.0); Mean Corpuscular HGB CONC 33.1 g/dL (32.0-36.0); Mean Corpuscular Hemoglobin 28.4 pg (27.0-31.0); Mean Corpuscular Volume 85.9 fl (78.0-98.0); Mean Platelet Volume 8.2 fL (7.4-10.4); Platelet Count 96 10x3/uL (130-400); RBC Distribution Width 16.6 % (11.5-14.5); Red Blood Cell (RBC) Count 3.24 mill/uL (4.70-6.10); White Blood Cell (WBC) Count 4.5 10x3/uL (4.8-10.8)
[2022-09-06] MEDS: Calcitriol 0.25 MCG CAP PO SCH (08:18)
[2022-09-06] MEDS: guaiFENesin/DM ER PO SCH ×2 (08:18→19:50)
[2022-09-06 08:19] LABS: Anion Gap 14 mmol/L (10-20); BUN (Urea Nitrogen) 41 mg/dL (8.4-25.7); BUN/Creatinine Ratio 7.92; Calc. Creatinine Clearance 14 mL/min (70-130); Calcium 7.9 mg/dL (7.8-10.44); Carbon Dioxide 24 mmol/L (23-31); Chloride 93 mmol/L (98-107); Estimated GFR 11; Glucose 92 mg/dL (83-110); Magnesium 1.5 mg/dL (1.6-2.6); Phosphorus 6.3 mg/dL (2.3-4.7); Potassium 3.2 mmol/L (3.5-5.1); Sodium 128 mmol/L (136-145)
[2022-09-06] MEDS: Pantoprazole 40 MG VIAL IVP SCH ×2 (08:19→19:51)
[2022-09-06] MEDS: HumuLIN 70/30 (300 UNITS/3 ML VIAL) SC SCH ×2 (08:19→19:51)
[2022-09-06] MEDS ORDERED: Magnesium 2 GM/50 ML(in water) 2 GM in Premix Bag 1 BAG IVPB SCH (09:15)
[2022-09-06] MEDS: Potassium Chloride 20 MEQ TAB PO SCH ×2 (10:29→17:15)
[2022-09-06] MEDS: HumaLOG 300 UNITS/3 ML VIAL SC PRN ×2 (12:44→17:17)
[2022-09-06] MEDS: HYDROcodone/Acetaminophen 10/325 mg Tablet PO PRN (13:21)
[2022-09-06] MEDS: Gabapentin 100 MG CAP PO SCH (19:49)
[2022-09-06] MEDS: Nortriptyline 10 MG CAP PO SCH (19:50)
[2022-09-06] MEDS: Mirtazapine 15 MG Soltab PO SCH (19:50)
[2022-09-07] MEDS: Levothyroxine Sodium 125 MCG TAB PO SCH (05:30)
[2022-09-07 08:19] VITALS: BP 123/78
[2022-09-07 09:05] VITALS: TEMP 98.5
[2022-09-07] MEDS: Calcitriol 0.25 MCG CAP PO SCH (09:51)
[2022-09-07] MEDS: guaiFENesin/DM ER PO SCH (09:51)
[2022-09-07] MEDS: Pantoprazole 40 MG VIAL IVP SCH (09:52)
[2022-09-07] MEDS: HumuLIN 70/30 (300 UNITS/3 ML VIAL) SC SCH (09:52)
[2022-09-07 10:02] LABS: Albumin 2.2 g/dL (3.4-4.8); Anion Gap 16 mmol/L (10-20); BUN (Urea Nitrogen) 39 mg/dL (8.4-25.7); BUN/Creatinine Ratio 7.68; Calc. Creatinine Clearance 14 mL/min (70-130); Calcium 8.3 mg/dL (7.8-10.44); Carbon Dioxide 23 mmol/L (23-31); Chloride 93 mmol/L (98-107); Estimated GFR 11; Glucose 130 mg/dL (83-110); Magnesium 1.7 mg/dL (1.6-2.6); Phosphorus 5.5 mg/dL (2.3-4.7); Potassium 4.2 mmol/L (3.5-5.1); Sodium 128 mmol/L (136-145)
== END 2022-09-07 11:56 | disposition home or self-care (01) | DRG 391 ==
LOC: ERS 09:50 → ERHOLD 12:13 → 2NO 15:27 → T4-B 09-05 15:43
PROVIDERS: ADMIT Hospitalist; ATTEND Hospitalist
PROC: 3E1M39Z Irrigation of Peritoneal Cavity using Dialysate, Percutaneous Approach (ICD-10-PCS; 2022-09-01)
PROC: 30233N1 Transfusion of Nonautologous Red Blood Cells into Peripheral Vein, Percutaneous Approach (ICD-10-PCS; 2022-09-02)
PROC: 0W9G3ZX Drainage of Peritoneal Cavity, Percutaneous Approach, Diagnostic (ICD-10-PCS; 2022-09-02)
PROC: 0DJ08ZZ Inspection of Upper Intestinal Tract, Via Natural or Artificial Opening Endoscopic (ICD-10-PCS; principal; 2022-09-03)
DX: K31.89 Other diseases of stomach and duodenum (principal); N18.6 End stage renal disease; K76.6 Portal hypertension; I85.10 Secondary esophageal varices without bleeding; I13.2 Hypertensive heart and chronic kidney disease with heart failure and with stage 5 chronic kidney disease, or end stage renal disease; E87.1 Hypo-osmolality and hyponatremia; K50.90 Crohn's disease, unspecified, without complications; K55.1 Chronic vascular disorders of intestine; I50.9 Heart failure, unspecified; I25.10 Atherosclerotic heart disease of native coronary artery without angina pectoris; E11.22 Type 2 diabetes mellitus with diabetic chronic kidney disease; E78.5 Hyperlipidemia, unspecified; E03.9 Hypothyroidism, unspecified; I95.89 Other hypotension; J44.9 Chronic obstructive pulmonary disease, unspecified; D63.1 Anemia in chronic kidney disease; K70.31 Alcoholic cirrhosis of liver with ascites; K59.09 Other constipation; K25.9 Gastric ulcer, unspecified as acute or chronic, without hemorrhage or perforation; E87.6 Hypokalemia; E83.42 Hypomagnesemia; D69.59 Other secondary thrombocytopenia; Z99.2 Dependence on renal dialysis; Z88.6 Allergy status to analgesic agent; Z88.5 Allergy status to narcotic agent; Z82.49 Family history of ischemic heart disease and other diseases of the circulatory system; Z83.3 Family history of diabetes mellitus
CPT/HCPCS: 36415; 36416; 36430; 74177; 80048; 80053; 80069; 82105; 83605; 83690; 83735; 83880; 85025; 85060; 86850; 86900; 86901; 87040; 87070; 87205; 89051; 90945; 96361; 96365; 96367; 96375; C9113; G0257; J1644; J1815; J2270; J2543; J2704; J3010; J3370-JW; J3475; J3490; J7999; P9016; Q5105; Q9967

== ENCOUNTER 2022-09-18 08:54 | Emergency (ER) | payer OTHER ==
[2022-09-18 10:41] LABS: ALT (SGPT) 38 U/L (8-55); AST (SGOT) 81 U/L (5-34); Albumin 2.3 g/dL (3.4-4.8); Alkaline Phosphatase 337 U/L (40-110); Anion Gap 19 mmol/L (10-20); BUN (Urea Nitrogen) 59 mg/dL (8.4-25.7); Bilirubin, Total 0.7 mg/dL (0.2-1.2); CK (CPK) 53 U/L (30-200); Calc. Creatinine Clearance 0 mL/min (70-130); Calcium 8.7 mg/dL (7.8-10.44); Carbon Dioxide 20 mmol/L (23-31); Chloride 86 mmol/L (98-107); Estimated GFR 8; Globulin 4.6 g/dL (2.4-3.5); Magnesium 2.1 mg/dL (1.6-2.6); Potassium 4.9 mmol/L (3.5-5.1); Protein, Total 6.9 g/dL (5.8-8.1); Sodium 120 mmol/L (136-145)
[2022-09-18 10:53] LABS: Glucose 485 mg/dL (83-110)
[2022-09-18 12:16] LABS: Hemoglobin 11.6 g/dL (14.0-18.0); Mean Corpuscular HGB CONC 31.7 g/dL (32.0-36.0); Mean Corpuscular Hemoglobin 27.3 pg (27.0-31.0); Mean Corpuscular Volume 86.1 fl (78.0-98.0); Mean Platelet Volume 7.7 fL (7.4-10.4); Platelet Count 217 10x3/uL (130-400); RBC Distribution Width 16.3 % (11.5-14.5); Red Blood Cell (RBC) Count 4.24 mill/uL (4.70-6.10); White Blood Cell (WBC) Count 12.3 10x3/uL (4.8-10.8)
[2022-09-18 12:17] LABS: Lymphocytes 2 % (21-51); MDiff Complete? YES; Monocytes 6 % (0-10); Neutrophil 92 % (42-75); Platelet Morphology Comment Appears Adequate; Polychromasia SLIGHT = 2-3 cells (100X) (0-2/hpf)
[2022-09-18] MEDS ORDERED: HYDROcodone/Acetaminophen 5/325 mg Tablet ONE (12:25)
== END 2022-09-18 12:25 | disposition home or self-care (01) ==
LOC: ERS 08:54
DX: R10.9 Unspecified abdominal pain (principal); R73.9 Hyperglycemia, unspecified; E87.1 Hypo-osmolality and hyponatremia; W06.XXXA Fall from bed, initial encounter; Z87.891 Personal history of nicotine dependence
CPT/HCPCS: 36415; 70450; 71045; 72125; 74176; 80053; 82550; 83735; 85025; 93005

== ENCOUNTER 2022-09-18 17:41 | Inpatient (IN) | payer OTHER ==
[2022-09-18 18:42] LABS: #Basophils 0.1 thou/uL (0.0-0.2); #Lymphocytes 0.4 thou/uL (1.20-3.40); #Neutrophils 10.8 thou/uL (1.40-6.50); %Basophils 0.4 % (0.0-1.0); %Eosinophils 0.2 % (0.0-10.0); %Lymphocytes 3.3 % (21.0-51.0); %Monocytes 8.4 % (0.0-10.0); %Neutrophils 87.7 % (42.0-75.0); Mean Corpuscular HGB CONC 32.8 g/dL (32.0-36.0); Mean Corpuscular Volume 85.3 fl (78.0-98.0); Mean Platelet Volume 7.9 fL (7.4-10.4); Platelet Count 162 10x3/uL (130-400); RBC Distribution Width 16.5 % (11.5-14.5); Red Blood Cell (RBC) Count 3.93 mill/uL (4.70-6.10); White Blood Cell (WBC) Count 12.3 10x3/uL (4.8-10.8)
[2022-09-18 19:16] LABS: ALT (SGPT) 30 U/L (8-55); AST (SGOT) 79 U/L (5-34); Alkaline Phosphatase 303 U/L (40-110); Anion Gap 19 mmol/L (10-20); BUN (Urea Nitrogen) 62 mg/dL (8.4-25.7); Bilirubin, Total 0.6 mg/dL (0.2-1.2); Calc. Creatinine Clearance 0 mL/min (70-130); Calcium 8.4 mg/dL (7.8-10.44); Carbon Dioxide 16 mmol/L (23-31); Chloride 89 mmol/L (98-107); Estimated GFR 8; Globulin 4.4 g/dL (2.4-3.5); Glucose 414 mg/dL (83-110); Potassium 4.9 mmol/L (3.5-5.1); Protein, Total 6.4 g/dL (5.8-8.1); Sodium 119 mmol/L (136-145)
[2022-09-18] MEDS ORDERED: Sodium Chloride 0.9% 1,000 ML IV SCH (21:45)
[2022-09-18] MEDS ORDERED: Dextrose 50% Abboject 50 ML SYRINGE SLOW IVP PRN (22:08)
[2022-09-18] MEDS ORDERED: Acetaminophen 325 MG TAB PO PRN (22:08)
[2022-09-18] MEDS ORDERED: Dextrose 5% in Water 1,000 ML IV PRN (22:08)
[2022-09-18] MEDS ORDERED: Ondansetron ODT 4 MG TAB PO PRN (22:08)
[2022-09-18] MEDS ORDERED: Senokot S 8.6-50 MG TAB PO PRN (22:08)
[2022-09-18] MEDS: HumaLOG 300 UNITS/3 ML VIAL SC PRN (22:40)
[2022-09-18 23:47] LABS: Lactic Acid 1.6 mmol/L (0.5-2.2)
[2022-09-19] MEDS: HYDROcodone/Acetaminophen 5/325 mg Tablet PO PRN ×2 (03:18→12:59)
[2022-09-19] MEDS: HumaLOG 300 UNITS/3 ML VIAL SC PRN ×2 (05:08→11:55)
[2022-09-19] MEDS ORDERED: Sodium Chloride 256 MEQ in Sterile Water 936 ML IV SCH ×2 (07:45→19:32)
[2022-09-19 07:56] LABS: #Basophils 0.1 thou/uL (0.0-0.2); #Eosinphils 0.2 thou/uL (0.0-0.7); #Lymphocytes 0.4 thou/uL (1.20-3.40); #Monocytes 0.8 thou/uL (0.11-0.59); #Neutrophils 7.4 thou/uL (1.40-6.50); %Basophils 1.2 % (0.0-1.0); %Eosinophils 1.9 % (0.0-10.0); %Lymphocytes 4.6 % (21.0-51.0); %Monocytes 8.5 % (0.0-10.0); %Neutrophils 83.7 % (42.0-75.0); Hemoglobin 9.9 g/dL (14.0-18.0); Mean Corpuscular HGB CONC 31.9 g/dL (32.0-36.0); Mean Corpuscular Hemoglobin 27.1 pg (27.0-31.0); Mean Corpuscular Volume 84.9 fl (78.0-98.0); Mean Platelet Volume 7.6 fL (7.4-10.4); Platelet Count 167 10x3/uL (130-400); RBC Distribution Width 16.4 % (11.5-14.5); Red Blood Cell (RBC) Count 3.66 mill/uL (4.70-6.10); White Blood Cell (WBC) Count 8.8 10x3/uL (4.8-10.8)
[2022-09-19 08:16] LABS: Anion Gap 16 mmol/L (10-20); BUN (Urea Nitrogen) 57 mg/dL (8.4-25.7); Calc. Creatinine Clearance 11 mL/min (70-130); Calcium 8.4 mg/dL (7.8-10.44); Carbon Dioxide 20 mmol/L (23-31); Chloride 90 mmol/L (98-107); Estimated GFR 9; Glucose 301 mg/dL (83-110); Potassium 3.3 mmol/L (3.5-5.1); Sodium 123 mmol/L (136-145)
[2022-09-19] MEDS: Famotidine 20 MG TAB PO SCH (08:53)
[2022-09-19] MEDS: Aspirin Chewable 81 MG TAB PO SCH (08:54)
[2022-09-19] MEDS: Magnesium Oxide 400 MG TAB PO SCH (08:54)
[2022-09-19] MEDS: Calcitriol 0.25 MCG CAP PO SCH ×2 (08:54→22:00)
[2022-09-19] MEDS ORDERED: HumuLIN 70/30 (300 UNITS/3 ML VIAL) SC SCH ×2 (09:00→21:00)
[2022-09-19] MEDS ORDERED: Iopamidol-370 76% 500 ML MDV (1 ML CHARGE) ONE (10:24)
[2022-09-19] MEDS ORDERED: GASTROGRAFIN 30 ML BOT ONE (10:24)
[2022-09-19] MEDS: Bisacodyl 10 MG SUPP PR SCH ×3 (11:42→22:03)
[2022-09-19] MEDS ORDERED: Cipro 250 MG TAB PO SCH (12:00)
[2022-09-19] MEDS ORDERED: HEPARIN CATH PRN (12:35)
[2022-09-19] MEDS ORDERED: PERITON DIALYSIS CATH PRN (12:35)
[2022-09-19] MEDS ORDERED: HEPARIN FS SCH ×3 (12:45)
[2022-09-19] MEDS ORDERED: DEX FS SCH (12:45)
[2022-09-19] MEDS ORDERED: PERITON DIALYSIS FS SCH ×2 (12:45)
[2022-09-19] MEDS ORDERED: PERIT DIALYSIS NO 6 FS SCH (12:45)
[2022-09-19] MEDS: Levothyroxine Sodium 125 MCG TAB PO SCH (16:27)
[2022-09-19 16:55] LABS: Anion Gap 19 mmol/L (10-20); BUN (Urea Nitrogen) 58 mg/dL (8.4-25.7); Calc. Creatinine Clearance 11 mL/min (70-130); Calcium 8.6 mg/dL (7.8-10.44); Carbon Dioxide 19 mmol/L (23-31); Chloride 92 mmol/L (98-107); Estimated GFR 9; Glucose 170 mg/dL (83-110); Potassium 3.7 mmol/L (3.5-5.1); Sodium 126 mmol/L (136-145)
[2022-09-19 17:11] LABS: HBSAg Index 0.21 S/CO (0-0.99); Hep B Surf Ag Non-Reactive S/CO (NonReactive)
[2022-09-19 17:23] LABS: HBSAB Concentration 17.21 mIU/mL; Hep B Surf AB Reactive (NonReactive)
[2022-09-19] MEDS ORDERED: Merrem (PEDI) 500 MG in Syringe 0 ML IVPB SCH (19:00)
[2022-09-19] MEDS: HumuLIN 70/30 (300 UNITS/3 ML VIAL) SC SCH (22:00)
[2022-09-19] MEDS: Atorvastatin Calcium 40 MG TAB PO SCH (22:00)
[2022-09-19] MEDS: Senokot S 8.6-50 MG TAB PO SCH (22:00)
[2022-09-19] MEDS: Insulin Glargine 30 UNITS/0.3 ML VIAL SC SCH (22:00)
[2022-09-19] MEDS: Meropenem 500 MG in Sodium Chloride 0.9% 100 ML IVPB SCH (22:03)
[2022-09-19] MEDS: Mirtazapine 15 MG TAB PO SCH (22:04)
[2022-09-20 02:03] LABS: BF Color Red; Body Fluid Source Peritoneal Fluid; Clarity Cloudy/Turbid (Clear); Tube # EDTA
[2022-09-20 02:23] LABS: RBC Count-Automated (BF) 65242 /cu.mm; WBC/Nucleated-Auto (BF) 2439 /cu.mm
[2022-09-20 02:47] LABS: BF Segmented Neutrophils 95 %; Cell Count Non Hematic 3 %; Lymphocytes 2 %
[2022-09-20] MEDS: Bisacodyl 10 MG SUPP PR SCH (02:50)
[2022-09-20] MEDS: HumaLOG 300 UNITS/3 ML VIAL SC PRN (05:44)
[2022-09-20] MEDS: Aspirin Chewable 81 MG TAB PO SCH (08:52)
[2022-09-20] MEDS: Famotidine 20 MG TAB PO SCH (08:52)
[2022-09-20] MEDS: Calcitriol 0.25 MCG CAP PO SCH ×2 (08:52→19:57)
[2022-09-20] MEDS: Senokot S 8.6-50 MG TAB PO SCH (08:54)
[2022-09-20] MEDS: Magnesium Oxide 400 MG TAB PO SCH (08:54)
[2022-09-20] MEDS: Polyethylene Glycol 3350 17 GM Packet PO SCH (08:54)
[2022-09-20] MEDS: Insulin Glargine 30 UNITS/0.3 ML VIAL SC SCH ×2 (08:55→19:59)
[2022-09-20] MEDS: HumuLIN 70/30 (300 UNITS/3 ML VIAL) SC SCH ×2 (08:55→19:59)
[2022-09-20] MEDS ORDERED: Loperamide HCl 2 MG CAP PO PRN (10:04)
[2022-09-20] MEDS: Gentamicin TOPICAL Ointment 0.1% 15 gm Tube TOP SCH ×2 (10:20→10:34)
[2022-09-20] MEDS ORDERED: HYDROcodone/Acetaminophen 5/325 mg Tablet PO SCH (10:30)
[2022-09-20] MEDS: SELENOMETH PO SCH ×2 (10:33→10:34)
[2022-09-20] MEDS: ZINC PO SCH ×2 (10:33→10:34)
[2022-09-20] MEDS: FOLIC PO SCH ×2 (10:33→10:34)
[2022-09-20] MEDS: [UNRECOGNIZED DRUG - OTHER] PO SCH ×2 (10:33→10:34)
[2022-09-20] MEDS: D3 PO SCH ×2 (10:33→10:34)
[2022-09-20 14:59] LABS: Anion Gap 15 mmol/L (10-20); BUN (Urea Nitrogen) 54 mg/dL (8.4-25.7); Calc. Creatinine Clearance 12 mL/min (70-130); Carbon Dioxide 21 mmol/L (23-31); Chloride 95 mmol/L (98-107); Estimated GFR 10; Glucose 154 mg/dL (83-110); Potassium 3.5 mmol/L (3.5-5.1); Sodium 127 mmol/L (136-145)
[2022-09-20] MEDS: Morphine 2 MG/ML VIAL SLOW IVP PRN ×2 (15:44→19:58)
[2022-09-20] MEDS: Levothyroxine Sodium 125 MCG TAB PO SCH (15:44)
[2022-09-20] MEDS ORDERED: Vancomycin 1.5 GRAM/300 ML BAG 1.5 GM in Premix Bag 1 BAG IVPB SCH (18:00)
[2022-09-20] MEDS: Albumin 25% 25 GM/100 ML BOT IVPB SCH ×2 (18:16→23:29)
[2022-09-20] MEDS: Mirtazapine 15 MG TAB PO SCH (19:57)
[2022-09-20] MEDS: Atorvastatin Calcium 40 MG TAB PO SCH (19:58)
[2022-09-20] MEDS: Saccharomyces boulardii 250 MG CAP PO SCH (19:58)
[2022-09-20] MEDS: Meropenem 500 MG in Sodium Chloride 0.9% 100 ML IVPB SCH (19:59)
[2022-09-20] MEDS ORDERED: Potassium Chloride 20 MEQ TAB PO SCH (21:15)
[2022-09-20 23:23] LABS: Anion Gap 16 mmol/L (10-20); BUN (Urea Nitrogen) 53 mg/dL (8.4-25.7); Calc. Creatinine Clearance 13 mL/min (70-130); Calcium 8.3 mg/dL (7.8-10.44); Carbon Dioxide 21 mmol/L (23-31); Chloride 95 mmol/L (98-107); Estimated GFR 10; Glucose 189 mg/dL (83-110); Potassium 3.5 mmol/L (3.5-5.1); Sodium 128 mmol/L (136-145)
[2022-09-21] MEDS: Albumin 25% 25 GM/100 ML BOT IVPB SCH ×3 (05:36→17:38)
[2022-09-21 08:09] LABS: Albumin 2.2 g/dL (3.4-4.8); Anion Gap 13 mmol/L (10-20); BUN (Urea Nitrogen) 51 mg/dL (8.4-25.7); BUN/Creatinine Ratio 9.12; Calc. Creatinine Clearance 13 mL/min (70-130); Calcium 8.2 mg/dL (7.8-10.44); Carbon Dioxide 23 mmol/L (23-31); Chloride 94 mmol/L (98-107); Estimated GFR 10; Glucose 207 mg/dL (83-110); Magnesium 1.9 mg/dL (1.6-2.6); Phosphorus 5.4 mg/dL (2.3-4.7); Potassium 3.2 mmol/L (3.5-5.1); Sodium 127 mmol/L (136-145)
[2022-09-21] MEDS ORDERED: Potassium Chloride 20 MEQ TAB PO SCH (08:45)
[2022-09-21] MEDS: Famotidine 20 MG TAB PO SCH (09:26)
[2022-09-21] MEDS: Aspirin Chewable 81 MG TAB PO SCH (09:26)
[2022-09-21] MEDS: Calcitriol 0.25 MCG CAP PO SCH ×2 (09:26→23:08)
[2022-09-21] MEDS: Insulin Glargine 30 UNITS/0.3 ML VIAL SC SCH ×2 (09:27→23:10)
[2022-09-21] MEDS: HumuLIN 70/30 (300 UNITS/3 ML VIAL) SC SCH ×2 (09:27→23:09)
[2022-09-21] MEDS: Magnesium Oxide 400 MG TAB PO SCH (09:27)
[2022-09-21] MEDS: Polyethylene Glycol 3350 17 GM Packet PO SCH (09:28)
[2022-09-21] MEDS ORDERED: Vancomycin 1 GM, Admixture Fee 1 EACH in Premix Bag 1 BAG IVPB SCH (10:45)
[2022-09-21] MEDS: HumaLOG 300 UNITS/3 ML VIAL SC PRN (12:06)
[2022-09-21] MEDS: Levothyroxine Sodium 125 MCG TAB PO SCH (16:48)
[2022-09-21] MEDS: Potassium Chloride 20 MEQ TAB PO SCH (16:49)
[2022-09-21] MEDS: Mirtazapine 15 MG TAB PO SCH (23:08)
[2022-09-21] MEDS: Saccharomyces boulardii 250 MG CAP PO SCH (23:08)
[2022-09-21] MEDS: Meropenem 500 MG in Sodium Chloride 0.9% 100 ML IVPB SCH (23:08)
[2022-09-21] MEDS: Atorvastatin Calcium 40 MG TAB PO SCH (23:08)
[2022-09-22] MEDS: Albumin 25% 25 GM/100 ML BOT IVPB SCH ×2 (03:11→08:24)
[2022-09-22 06:11] LABS: Anion Gap 17 mmol/L (10-20); BUN (Urea Nitrogen) 50 mg/dL (8.4-25.7); Calc. Creatinine Clearance 13 mL/min (70-130); Calcium 8.9 mg/dL (7.8-10.44); Carbon Dioxide 22 mmol/L (23-31); Chloride 94 mmol/L (98-107); Estimated GFR 10; Glucose 314 mg/dL (83-110); Magnesium 2.1 mg/dL (1.6-2.6); Phosphorus 4.2 mg/dL (2.3-4.7); Potassium 4.3 mmol/L (3.5-5.1); Sodium 129 mmol/L (136-145)
[2022-09-22] MEDS: HumaLOG 300 UNITS/3 ML VIAL SC PRN (06:45)
[2022-09-22] MEDS: Famotidine 20 MG TAB PO SCH (08:24)
[2022-09-22] MEDS: Calcitriol 0.25 MCG CAP PO SCH ×2 (08:25→21:25)
[2022-09-22] MEDS: Aspirin Chewable 81 MG TAB PO SCH (08:25)
[2022-09-22] MEDS: Potassium Chloride 20 MEQ TAB PO SCH ×2 (08:25→16:03)
[2022-09-22] MEDS: Insulin Glargine 30 UNITS/0.3 ML VIAL SC SCH (08:26)
[2022-09-22] MEDS: HumuLIN 70/30 (300 UNITS/3 ML VIAL) SC SCH ×2 (08:26→21:27)
[2022-09-22] MEDS: Gentamicin TOPICAL Ointment 0.1% 15 gm Tube TOP SCH (08:27)
[2022-09-22] MEDS: Polyethylene Glycol 3350 17 GM Packet PO SCH (08:27)
[2022-09-22] MEDS: Magnesium Oxide 400 MG TAB PO SCH (08:27)
[2022-09-22] MEDS: Cefepime 1 GM in Sodium Chloride 0.9% 100 ML IVPB SCH (12:22)
[2022-09-22] MEDS ORDERED: Albumin 25% 25 GM/100 ML BOT IVPB SCH (15:00)
[2022-09-22] MEDS: Levothyroxine Sodium 125 MCG TAB PO SCH (16:03)
[2022-09-22] MEDS ORDERED: hydrOXYzine 25 MG TAB PO SCH (19:30)
[2022-09-22] MEDS: Atorvastatin Calcium 40 MG TAB PO SCH (21:25)
[2022-09-22] MEDS: Saccharomyces boulardii 250 MG CAP PO SCH (21:25)
[2022-09-22] MEDS: Mirtazapine 15 MG TAB PO SCH (21:25)
[2022-09-22] MEDS: Meropenem 500 MG in Sodium Chloride 0.9% 100 ML IVPB SCH (21:26)
[2022-09-23 05:25] LABS: Hemoglobin 8.3 g/dL (14.0-18.0); Mean Corpuscular HGB CONC 34.4 g/dL (32.0-36.0); Mean Corpuscular Hemoglobin 29.2 pg (27.0-31.0); Mean Corpuscular Volume 84.8 fl (78.0-98.0); Mean Platelet Volume 7.2 fL (7.4-10.4); Platelet Count 122 10x3/uL (130-400); RBC Distribution Width 16.6 % (11.5-14.5); Red Blood Cell (RBC) Count 2.83 mill/uL (4.70-6.10); White Blood Cell (WBC) Count 7.1 10x3/uL (4.8-10.8)
[2022-09-23 05:42] LABS: Vancomycin, Random 15.4 ug/mL (See Comment)
[2022-09-23 05:44] LABS: Anion Gap 14 mmol/L (10-20); BUN (Urea Nitrogen) 54 mg/dL (8.4-25.7); Calc. Creatinine Clearance 13 mL/min (70-130); Carbon Dioxide 22 mmol/L (23-31); Chloride 99 mmol/L (98-107); Estimated GFR 10; Glucose 106 mg/dL (83-110); Potassium 5.1 mmol/L (3.5-5.1); Sodium 130 mmol/L (136-145)
[2022-09-23] MEDS ORDERED: Ipratropium/Albuterol 3 ML NEB NEB SCH (06:15)
[2022-09-23] MEDS ORDERED: Vancomycin HCl 750 MG in Sodium Chloride 0.9% 250 ML 250 ML IVPB SCH (08:00)
[2022-09-23] MEDS ORDERED: Lorazepam 0.5 MG TAB PO SCH ×3 (08:45→21:00)
[2022-09-23] MEDS: Calcitriol 0.25 MCG CAP PO SCH ×2 (09:06→21:02)
[2022-09-23] MEDS: Aspirin Chewable 81 MG TAB PO SCH (09:06)
[2022-09-23] MEDS: Magnesium Oxide 400 MG TAB PO SCH (09:07)
[2022-09-23] MEDS: Famotidine 20 MG TAB PO SCH (09:07)
[2022-09-23] MEDS: Polyethylene Glycol 3350 17 GM Packet PO SCH (09:07)
[2022-09-23] MEDS: Potassium Chloride 20 MEQ TAB PO SCH (09:31)
[2022-09-23] MEDS: HumuLIN 70/30 (300 UNITS/3 ML VIAL) SC SCH ×2 (09:33→21:04)
[2022-09-23] MEDS: Insulin Glargine 30 UNITS/0.3 ML VIAL SC SCH (09:34)
[2022-09-23] MEDS: Gentamicin TOPICAL Ointment 0.1% 15 gm Tube TOP SCH (10:17)
[2022-09-23] MEDS: Cefepime 1 GM in Sodium Chloride 0.9% 100 ML IVPB SCH (10:19)
[2022-09-23] MEDS ORDERED: Haloperidol Lactate 5 MG/ML VIAL IM SCH (15:00)
[2022-09-23] MEDS: Levothyroxine Sodium 125 MCG TAB PO SCH (15:27)
[2022-09-23] MEDS: Atorvastatin Calcium 40 MG TAB PO SCH (21:02)
[2022-09-23] MEDS: Saccharomyces boulardii 250 MG CAP PO SCH (21:03)
[2022-09-23] MEDS: Mirtazapine 15 MG TAB PO SCH (21:03)
[2022-09-23 22:21] LABS: Actual Bicarbonate (HCO3a) 19.7 mEq/L (22-28); Base Excess (BEa) -6.8 mEq/L (-2.0 to +3.0); CO2 Tension 43.4 mmHg (35.0-45.0); Calcium, Ionized (arterial) 1.18 mmol/L (1.12-1.30); Carboxyhemoglobin (COHb) 0.6 gm% (0.0-3.0); Hematocrit-ABG 27 % (42.0-52.0); Hemoglobin (Hb) 9.1 g/dL (14.0-18.0); O2 Tension (PaO2), arterial 78.4 mmHg (> 70.0); Potassium - ABG Lab 4.95 mmol/L (3.70-5.30); pH, Arterial 7.274 (7.35-7.45)
[2022-09-23] MEDS ORDERED: Rocuronium Bromide 10 MG/ML (10ML VIAL) ONE (22:24)
[2022-09-23] MEDS ORDERED: Etomidate 20 MG/10 ML VIAL ONE (22:24)
[2022-09-23] MEDS ORDERED: Naloxone HCl 0.4 mg/ml Vial ONE (22:24)
[2022-09-23 22:25] LABS: Puncture Site RRA
[2022-09-23 23:01] LABS: Hemoglobin 9.4 g/dL (14.0-18.0); Mean Corpuscular HGB CONC 33.5 g/dL (32.0-36.0); Mean Corpuscular Hemoglobin 28.2 pg (27.0-31.0); Mean Corpuscular Volume 84.4 fl (78.0-98.0); Mean Platelet Volume 7.2 fL (7.4-10.4); Platelet Count 148 10x3/uL (130-400); RBC Distribution Width 16.8 % (11.5-14.5); Red Blood Cell (RBC) Count 3.33 mill/uL (4.70-6.10); White Blood Cell (WBC) Count 8.6 10x3/uL (4.8-10.8)
[2022-09-23] MEDS ORDERED: Propofol 1,000 MG/100 ML VIAL IV ONE (23:02)
[2022-09-23] MEDS: Propofol 1,000 MG/100 ML VIAL IV PRN (23:05)
[2022-09-23] MEDS ORDERED: Ventilator Sedation Protocol FS SCH (23:15)
[2022-09-23] MEDS ORDERED: Morphine 2 MG/ML VIAL SLOW IVP PRN (23:15)
[2022-09-23] MEDS ORDERED: DISCONTINUE PREVIOUS NARCOTIC PAIN MEDICATIONS AND BENZODIAZEPINES FS SCH (23:15)
[2022-09-23] MEDS ORDERED: Propofol BOLUS 1,000 MG/100 ML VIAL IV PRN (23:15)
[2022-09-23] MEDS ORDERED: Fentanyl BOLUS 250 ML IVPB PRN (23:15)
[2022-09-23 23:21] LABS: Actual Bicarbonate (HCO3a) 21.2 mEq/L (22-28); Base Excess (BEa) -3.3 mEq/L (-2.0 to +3.0); CO2 Tension 35.9 mmHg (35.0-45.0); Calcium, Ionized (arterial) 1.16 mmol/L (1.12-1.30); Carboxyhemoglobin (COHb) 0.4 gm% (0.0-3.0); Hematocrit-ABG 26 % (42.0-52.0); O2 Tension (PaO2), arterial 91.9 mmHg (> 70.0); pH, Arterial 7.389 (7.35-7.45)
[2022-09-23 23:24] LABS: ALT (SGPT) 19 U/L (8-55); AST (SGOT) 83 U/L (5-34); Albumin 3.2 g/dL (3.4-4.8); Alkaline Phosphatase 265 U/L (40-110); Anion Gap 17 mmol/L (10-20); BUN (Urea Nitrogen) 53 mg/dL (8.4-25.7); Bilirubin, Total 0.6 mg/dL (0.2-1.2); Calc. Creatinine Clearance 13 mL/min (70-130); Calcium 9.1 mg/dL (7.8-10.44); Carbon Dioxide 22 mmol/L (23-31); Chloride 98 mmol/L (98-107); Estimated GFR 11; Globulin 3.4 g/dL (2.4-3.5); Glucose 184 mg/dL (83-110); Potassium 5.3 mmol/L (3.5-5.1); Protein, Total 6.6 g/dL (5.8-8.1); Sodium 132 mmol/L (136-145)
[2022-09-23 23:26] LABS: Lactic Acid 2.5 mmol/L (0.5-2.2)
[2022-09-23 23:26] LABS: ALV-art Gradient 148.425 mmHg (0-20); Puncture Site LRA
[2022-09-23 23:29] LABS: Anisocytosis SLIGHT = 6-15 cells (100X) (0-5/hpf); Crenated RBC SLIGHT = 1-5 cells (100X) (None Seen); Eosinophils 5 % (0-10); Lymphocytes 4 % (21-51); MDiff Complete? YES; Monocytes 9 % (0-10); Neutrophil 82 % (42-75); Platelet Morphology Comment Appears Adequate; Polychromasia SLIGHT = 2-3 cells (100X) (0-2/hpf)
[2022-09-23 23:36] LABS: Troponin I 0.196 ng/mL (< 0.028)
[2022-09-23] MEDS: Fentanyl CADD 100 ML IV SCH (23:36)
[2022-09-24] MEDS: Lorazepam 2 MG/ML VIAL SLOW IVP PRN ×2 (00:45→09:25)
[2022-09-24] MEDS: NOREPINEPHRINE 8 MG/250 ML-D5W 250 ML IVPB SCH (00:46)
[2022-09-24 04:03] LABS: Hemoglobin 7.5 g/dL (14.0-18.0); Mean Corpuscular HGB CONC 33.4 g/dL (32.0-36.0); Mean Corpuscular Hemoglobin 28.2 pg (27.0-31.0); Mean Corpuscular Volume 84.4 fl (78.0-98.0); Mean Platelet Volume 7.6 fL (7.4-10.4); Platelet Count 145 10x3/uL (130-400); RBC Distribution Width 16.3 % (11.5-14.5); Red Blood Cell (RBC) Count 2.65 mill/uL (4.70-6.10); White Blood Cell (WBC) Count 9.4 10x3/uL (4.8-10.8)
[2022-09-24 04:18] LABS: Phosphorus 4.7 mg/dL (2.3-4.7)
[2022-09-24 04:22] LABS: Anion Gap 16 mmol/L (10-20); BUN (Urea Nitrogen) 52 mg/dL (8.4-25.7); Calc. Creatinine Clearance 14 mL/min (70-130); Calcium 8.7 mg/dL (7.8-10.44); Carbon Dioxide 20 mmol/L (23-31); Chloride 99 mmol/L (98-107); Estimated GFR 10; Glucose 107 mg/dL (83-110); Magnesium 2.2 mg/dL (1.6-2.6); Potassium 4.9 mmol/L (3.5-5.1); Sodium 130 mmol/L (136-145)
[2022-09-24 04:47] LABS: Anisocytosis SLIGHT = 6-15 cells (100X) (0-5/hpf); Band 1 % (5-11); Crenated RBC SLIGHT = 1-5 cells (100X) (None Seen); Lymphocytes 3 % (21-51); MDiff Complete? YES; Monocytes 11 % (0-10); Neutrophil 84 % (42-75); Platelet Morphology Comment Appears Adequate; Polychromasia SLIGHT = 2-3 cells (100X) (0-2/hpf)
[2022-09-24] MEDS ORDERED: Heparin 10,000 UNITS/ 10 ML VIAL ONE (08:23)
[2022-09-24] MEDS: Famotidine 20 MG TAB PO SCH (08:30)
[2022-09-24] MEDS: Aspirin Chewable 81 MG TAB PO SCH (08:30)
[2022-09-24] MEDS: Magnesium Oxide 400 MG TAB PO SCH (08:31)
[2022-09-24] MEDS: Polyethylene Glycol 3350 17 GM Packet PO SCH (08:31)
[2022-09-24] MEDS: Insulin Glargine 30 UNITS/0.3 ML VIAL SC SCH ×2 (08:31→08:45)
[2022-09-24] MEDS: HumuLIN 70/30 (300 UNITS/3 ML VIAL) SC SCH ×4 (08:33→21:22)
[2022-09-24] MEDS: Calcitriol 0.25 MCG CAP PO SCH ×2 (08:39→21:23)
[2022-09-24] MEDS: Propofol 1,000 MG/100 ML VIAL IV PRN (10:14)
[2022-09-24] MEDS: Gentamicin TOPICAL Ointment 0.1% 15 gm Tube TOP SCH (10:19)
[2022-09-24] MEDS: Cefepime 1 GM in Sodium Chloride 0.9% 100 ML IVPB SCH (10:46)
[2022-09-24] MEDS: Levothyroxine Sodium 125 MCG TAB PO SCH (15:33)
[2022-09-24 17:17] LABS: Lactic Acid 0.9 mmol/L (0.5-2.2)
[2022-09-24] MEDS: Saccharomyces boulardii 250 MG CAP PO SCH (21:23)
[2022-09-24] MEDS: Mirtazapine 15 MG TAB PO SCH (21:23)
[2022-09-24] MEDS: Atorvastatin Calcium 40 MG TAB PO SCH (21:25)
[2022-09-25] MEDS: Propofol 1,000 MG/100 ML VIAL IV PRN (00:20)
[2022-09-25] MEDS: Lorazepam 2 MG/ML VIAL SLOW IVP PRN (01:24)
[2022-09-25 08:05] LABS: Vancomycin, Random 15.7 ug/mL (See Comment)
[2022-09-25] MEDS: Calcitriol 0.25 MCG CAP PO SCH ×3 (09:51→21:06)
[2022-09-25] MEDS: Polyethylene Glycol 3350 17 GM Packet PO SCH (09:51)
[2022-09-25] MEDS: Aspirin Chewable 81 MG TAB PO SCH (09:53)
[2022-09-25] MEDS: Magnesium Oxide 400 MG TAB PO SCH (09:54)
[2022-09-25] MEDS: Cefepime 1 GM in Sodium Chloride 0.9% 100 ML IVPB SCH (09:56)
[2022-09-25 10:03] LABS: #Eosinphils 0.2 thou/uL (0.0-0.7); #Lymphocytes 0.7 thou/uL (1.20-3.40); #Monocytes 0.9 thou/uL (0.11-0.59); #Neutrophils 6.7 thou/uL (1.40-6.50); %Basophils 0.2 % (0.0-1.0); %Eosinophils 2.4 % (0.0-10.0); %Neutrophils 78.4 % (42.0-75.0); Hemoglobin 8.5 g/dL (14.0-18.0); Mean Corpuscular HGB CONC 32.3 g/dL (32.0-36.0); Mean Corpuscular Hemoglobin 27.7 pg (27.0-31.0); Mean Corpuscular Volume 85.6 fl (78.0-98.0); Mean Platelet Volume 7.6 fL (7.4-10.4); Platelet Count 126 10x3/uL (130-400); RBC Distribution Width 16.6 % (11.5-14.5); Red Blood Cell (RBC) Count 3.06 mill/uL (4.70-6.10); White Blood Cell (WBC) Count 8.6 10x3/uL (4.8-10.8)
[2022-09-25] MEDS ORDERED: Heparin 10,000 UNITS/ 10 ML VIAL ONE (10:21)
[2022-09-25] MEDS: HumuLIN 70/30 (300 UNITS/3 ML VIAL) SC SCH ×2 (10:51→21:06)
[2022-09-25 11:04] LABS: Anion Gap 16 mmol/L (10-20); BUN (Urea Nitrogen) 21 mg/dL (8.4-25.7); Calc. Creatinine Clearance 24 mL/min (70-130); Calcium 8.5 mg/dL (7.8-10.44); Carbon Dioxide 24 mmol/L (23-31); Chloride 100 mmol/L (98-107); Estimated GFR 20; Glucose 81 mg/dL (83-110); Magnesium 2.2 mg/dL (1.6-2.6); Potassium 3.9 mmol/L (3.5-5.1); Sodium 136 mmol/L (136-145)
[2022-09-25] MEDS ORDERED: Vancomycin HCl 750 MG in Sodium Chloride 0.9% 250 ML 250 ML IVPB SCH (11:15)
[2022-09-25] MEDS: Gentamicin TOPICAL Ointment 0.1% 15 gm Tube TOP SCH (12:43)
[2022-09-25] MEDS: Albumin 25% 25 GM/100 ML BOT IVPB SCH ×3 (12:43→23:42)
[2022-09-25] MEDS ORDERED: Fentanyl CADD 100 ML ONE (14:32)
[2022-09-25] MEDS: Fentanyl CADD 100 ML IV SCH (14:34)
[2022-09-25] MEDS: Levothyroxine Sodium 125 MCG TAB PO SCH (16:54)
[2022-09-25] MEDS: Atorvastatin Calcium 40 MG TAB PO SCH (21:06)
[2022-09-25] MEDS: Saccharomyces boulardii 250 MG CAP PO SCH (21:06)
[2022-09-25] MEDS: Mirtazapine 15 MG TAB PO SCH (21:06)
[2022-09-26 04:05] LABS: Anion Gap 16 mmol/L (10-20); BUN (Urea Nitrogen) 20 mg/dL (8.4-25.7); Calc. Creatinine Clearance 24 mL/min (70-130); Calcium 8.4 mg/dL (7.8-10.44); Carbon Dioxide 22 mmol/L (23-31); Chloride 102 mmol/L (98-107); Estimated GFR 20; Glucose 155 mg/dL (83-110); Potassium 3.4 mmol/L (3.5-5.1); Sodium 137 mmol/L (136-145)
[2022-09-26 04:27] LABS: #Eosinphils 0.1 thou/uL (0.0-0.7); #Lymphocytes 0.4 thou/uL (1.20-3.40); #Monocytes 0.5 thou/uL (0.11-0.59); #Neutrophils 2.8 thou/uL (1.40-6.50); %Basophils 0.8 % (0.0-1.0); %Eosinophils 2.6 % (0.0-10.0); %Lymphocytes 9.6 % (21.0-51.0); %Monocytes 13.1 % (0.0-10.0); %Neutrophils 73.9 % (42.0-75.0); Hemoglobin 6.9 g/dL (14.0-18.0); Mean Corpuscular HGB CONC 33.5 g/dL (32.0-36.0); Mean Corpuscular Hemoglobin 28.6 pg (27.0-31.0); Mean Corpuscular Volume 85.6 fl (78.0-98.0); Mean Platelet Volume 8.1 fL (7.4-10.4); Platelet Count 67 10x3/uL (130-400); RBC Distribution Width 16.1 % (11.5-14.5); White Blood Cell (WBC) Count 3.8 10x3/uL (4.8-10.8)
[2022-09-26] MEDS: Albumin 25% 25 GM/100 ML BOT IVPB SCH (05:04)
[2022-09-26 07:58] LABS: Actual Bicarbonate (HCO3a) 25.1 mEq/L (22-28); Base Excess (BEa) 1.3 mEq/L (-2.0 to +3.0); CO2 Tension 35.5 mmHg (35.0-45.0); Calcium, Ionized (arterial) 1.13 mmol/L (1.12-1.30); Carboxyhemoglobin (COHb) 0.9 gm% (0.0-3.0); Hematocrit-ABG 21 % (42.0-52.0); Hemoglobin (Hb) 7.3 g/dL (14.0-18.0); O2 Tension (PaO2), arterial 120.2 mmHg (> 70.0); pH, Arterial 7.467 (7.35-7.45)
[2022-09-26 08:01] LABS: ALV-art Gradient 120.625 mmHg (0-20); Puncture Site LRA
[2022-09-26] MEDS ORDERED: EPOETIN ALFA-EPBX (ESRD) 10,000 UNITS/ML VIAL SC SCH (09:00)
[2022-09-26] MEDS: Polyethylene Glycol 3350 17 GM Packet PO SCH (09:25)
[2022-09-26] MEDS: Calcitriol 0.25 MCG CAP PO SCH ×2 (09:25→20:20)
[2022-09-26] MEDS: Magnesium Oxide 400 MG TAB PO SCH (09:25)
[2022-09-26] MEDS: Aspirin Chewable 81 MG TAB PO SCH (09:26)
[2022-09-26] MEDS ORDERED: Heparin 10,000 UNITS/ 10 ML VIAL ONE (09:26)
[2022-09-26] MEDS: Gentamicin TOPICAL Ointment 0.1% 15 gm Tube TOP SCH (09:26)
[2022-09-26] MEDS: Lorazepam 2 MG/ML VIAL SLOW IVP PRN ×2 (10:00→16:17)
[2022-09-26] MEDS: Cefepime 1 GM in Sodium Chloride 0.9% 100 ML IVPB SCH (10:02)
[2022-09-26] MEDS: HumuLIN 70/30 (300 UNITS/3 ML VIAL) SC SCH (10:12)
[2022-09-26] MEDS: Levothyroxine Sodium 125 MCG TAB PO SCH (16:17)
[2022-09-26] MEDS: Fentanyl CADD 100 ML IV SCH (17:03)
[2022-09-26] MEDS ORDERED: Dexmedetomidine 1,000 MCG, Admixture Fee 1 EACH in Sodium Chloride 0.9% 250 ML 240 ML IVPB SCH (18:30)
[2022-09-26] MEDS: Mirtazapine 15 MG TAB PO SCH (20:19)
[2022-09-26] MEDS: Atorvastatin Calcium 40 MG TAB PO SCH (20:19)
[2022-09-26] MEDS: Saccharomyces boulardii 250 MG CAP PO SCH (20:19)
[2022-09-26] MEDS: HumuLIN 70/30 100 Unit/ ml Vial SC SCH (20:20)
[2022-09-27 04:57] LABS: #Eosinphils 0.1 thou/uL (0.0-0.7); #Lymphocytes 0.4 thou/uL (1.20-3.40); #Monocytes 0.5 thou/uL (0.11-0.59); #Neutrophils 3.7 thou/uL (1.40-6.50); %Eosinophils 2.1 % (0.0-10.0); %Lymphocytes 9.2 % (21.0-51.0); %Neutrophils 76.7 % (42.0-75.0); Hemoglobin 7.5 g/dL (14.0-18.0); Mean Corpuscular HGB CONC 32.7 g/dL (32.0-36.0); Mean Corpuscular Volume 85.9 fl (78.0-98.0); Mean Platelet Volume 8.7 fL (7.4-10.4); Platelet Count 54 10x3/uL (130-400); RBC Distribution Width 16.2 % (11.5-14.5); Red Blood Cell (RBC) Count 2.68 mill/uL (4.70-6.10); White Blood Cell (WBC) Count 4.8 10x3/uL (4.8-10.8)
[2022-09-27 05:22] LABS: Anion Gap 15 mmol/L (10-20); BUN (Urea Nitrogen) 13 mg/dL (8.4-25.7); Calc. Creatinine Clearance 30 mL/min (70-130); Calcium 8.7 mg/dL (7.8-10.44); Carbon Dioxide 26 mmol/L (23-31); Chloride 102 mmol/L (98-107); Estimated GFR 27; Glucose 188 mg/dL (83-110); Potassium 3.6 mmol/L (3.5-5.1); Sodium 139 mmol/L (136-145)
[2022-09-27] MEDS: HumaLOG 300 UNITS/3 ML VIAL SC PRN ×2 (06:18→10:57)
[2022-09-27 08:14] LABS: Vancomycin, Random 13.9 ug/mL (See Comment)
[2022-09-27] MEDS: Polyethylene Glycol 3350 17 GM Packet PO SCH (08:36)
[2022-09-27] MEDS: Aspirin Chewable 81 MG TAB PO SCH (08:37)
[2022-09-27] MEDS: Magnesium Oxide 400 MG TAB PO SCH (08:37)
[2022-09-27] MEDS: HumuLIN 70/30 100 Unit/ ml Vial SC SCH ×2 (08:37→20:02)
[2022-09-27] MEDS: Gentamicin TOPICAL Ointment 0.1% 15 gm Tube TOP SCH (08:37)
[2022-09-27] MEDS: Calcitriol 0.25 MCG CAP PO SCH ×3 (08:38→20:03)
[2022-09-27] MEDS ORDERED: Vancomycin HCl 750 MG in Sodium Chloride 0.9% 250 ML 250 ML IVPB SCH (09:45)
[2022-09-27] MEDS: Cefepime 1 GM in Sodium Chloride 0.9% 100 ML IVPB SCH (10:57)
[2022-09-27] MEDS ORDERED: Vancomycin 250 MG in Sodium Chloride 0.9% 100 ML IVPB SCH (12:00)
[2022-09-27 13:54] LABS: Actual Bicarbonate (HCO3v) 29.7 mEq/L (22-28); Base Excess 5.7 mEq/L (-2.0 to +3.0); Calcium, Ionized (venous) 1.14 mmol/L (1.16-1.32); Chloride (VBG) 102 mmol/L (98-106); Hematocrit-VBG 24 % (42.0-52.0); Hemoglobin (Hb) 8.3 g/dL (12.6-17.4); Potassium (VBG) 3.88 mmol/L (3.70-5.30); Sodium 138.1 mmol/L (133-146); pH (venous) 7.479 (7.32-7.43)
[2022-09-27] MEDS: Levothyroxine Sodium 125 MCG TAB PO SCH (14:33)
[2022-09-27] MEDS: Saccharomyces boulardii 250 MG CAP PO SCH (20:02)
[2022-09-27] MEDS: Atorvastatin Calcium 40 MG TAB PO SCH (20:02)
[2022-09-27] MEDS: Mirtazapine 15 MG TAB PO SCH (20:03)
[2022-09-27] MEDS: Dexmedetomidine 400 MCG, Admixture Fee 1 EACH in Sodium Chloride 0.9% 96 ML IVPB SCH (20:30)
[2022-09-28 04:33] LABS: #Eosinphils 0.1 thou/uL (0.0-0.7); #Lymphocytes 0.5 thou/uL (1.20-3.40); #Monocytes 0.8 thou/uL (0.11-0.59); #Neutrophils 4.9 thou/uL (1.40-6.50); %Basophils 0.3 % (0.0-1.0); %Eosinophils 0.9 % (0.0-10.0); %Lymphocytes 8.3 % (21.0-51.0); %Monocytes 12.1 % (0.0-10.0); %Neutrophils 78.5 % (42.0-75.0); Hemoglobin 7.1 g/dL (14.0-18.0); Mean Corpuscular Hemoglobin 28.4 pg (27.0-31.0); Mean Corpuscular Volume 86.1 fl (78.0-98.0); Mean Platelet Volume 9.7 fL (7.4-10.4); Platelet Count 46 10x3/uL (130-400); RBC Distribution Width 16.2 % (11.5-14.5); Red Blood Cell (RBC) Count 2.49 mill/uL (4.70-6.10); White Blood Cell (WBC) Count 6.2 10x3/uL (4.8-10.8)
[2022-09-28 04:41] LABS: Anion Gap 13 mmol/L (10-20); BUN (Urea Nitrogen) 17 mg/dL (8.4-25.7); Calc. Creatinine Clearance 24 mL/min (70-130); Calcium 8.7 mg/dL (7.8-10.44); Carbon Dioxide 26 mmol/L (23-31); Chloride 105 mmol/L (98-107); Estimated GFR 18; Glucose 90 mg/dL (83-110); Potassium 3.4 mmol/L (3.5-5.1); Sodium 141 mmol/L (136-145)
[2022-09-28 08:51] LABS: Vancomycin, Random 16.7 ug/mL (See Comment)
[2022-09-28] MEDS ORDERED: Lansoprazole 15 MG/5 ML (BATCHED)UDCUP PER TUBE SCH (09:00)
[2022-09-28] MEDS: Calcitriol 0.25 MCG CAP PO SCH ×2 (09:04→20:44)
[2022-09-28] MEDS: Metoprolol Tartrate 25 MG TAB PO SCH ×2 (09:05→20:44)
[2022-09-28] MEDS: Aspirin Chewable 81 MG TAB PO SCH (09:05)
[2022-09-28] MEDS: Magnesium Oxide 400 MG TAB PO SCH (09:05)
[2022-09-28] MEDS: HumuLIN 70/30 100 Unit/ ml Vial SC SCH ×2 (09:07→22:24)
[2022-09-28] MEDS: Polyethylene Glycol 3350 17 GM Packet PO SCH ×3 (09:08→11:00)
[2022-09-28] MEDS ORDERED: Heparin 10,000 UNITS/ 10 ML VIAL ONE (09:23)
[2022-09-28] MEDS: Cefepime 1 GM in Sodium Chloride 0.9% 100 ML IVPB SCH ×3 (11:20→20:03)
[2022-09-28] MEDS: Gentamicin TOPICAL Ointment 0.1% 15 gm Tube TOP SCH (11:24)
[2022-09-28] MEDS ORDERED: Activase 2 MG VIAL CATH PRN (12:22)
[2022-09-28] MEDS ORDERED: Lorazepam 2 MG/ML VIAL SLOW IVP SCH ×2 (16:15→17:00)
[2022-09-28] MEDS ORDERED: Propofol 1,000 MG/100 ML VIAL IV PRN (17:00)
[2022-09-28] MEDS ORDERED: Fentanyl CADD 100 ML IV SCH (17:00)
[2022-09-28] MEDS ORDERED: Vancomycin HCl 750 MG in Sodium Chloride 0.9% 250 ML 250 ML IVPB SCH (17:00)
[2022-09-28] MEDS ORDERED: Lorazepam 2 MG/ML VIAL SLOW IVP PRN (17:00)
[2022-09-28] MEDS ORDERED: Fentanyl BOLUS 250 ML IVPB PRN (17:00)
[2022-09-28] MEDS ORDERED: Propofol BOLUS 1,000 MG/100 ML VIAL IV PRN (17:00)
[2022-09-28] MEDS ORDERED: Ventilator Sedation Protocol 1 EACH FS PRN (17:00)
[2022-09-28] MEDS ORDERED: Morphine 2 MG/ML VIAL SLOW IVP PRN (17:00)
[2022-09-28] MEDS ORDERED: Scopolamine 1.5 mg/72 hour Patch TOP SCH (17:00)
[2022-09-28] MEDS: Levothyroxine Sodium 125 MCG TAB PO SCH (17:12)
[2022-09-28] MEDS: Dexmedetomidine 400 MCG, Admixture Fee 1 EACH in Sodium Chloride 0.9% 96 ML IVPB SCH (19:05)
[2022-09-28] MEDS: NOREPINEPHRINE 8 MG/250 ML-D5W 250 ML IVPB SCH (20:30)
[2022-09-28] MEDS: Mirtazapine 15 MG TAB PO SCH (20:44)
[2022-09-28] MEDS: Saccharomyces boulardii 250 MG CAP PO SCH (20:44)
[2022-09-28] MEDS: Atorvastatin Calcium 40 MG TAB PO SCH (20:44)
[2022-09-29] MEDS: Dexmedetomidine 400 MCG, Admixture Fee 1 EACH in Sodium Chloride 0.9% 96 ML IVPB SCH (03:20)
[2022-09-29 04:41] LABS: #Lymphocytes 0.8 thou/uL (1.20-3.40); #Monocytes 1.1 thou/uL (0.11-0.59); #Neutrophils 17.1 thou/uL (1.40-6.50); %Basophils 0.1 % (0.0-1.0); %Eosinophils 0.2 % (0.0-10.0); %Lymphocytes 4.1 % (21.0-51.0); %Monocytes 5.7 % (0.0-10.0); Hemoglobin 7.6 g/dL (14.0-18.0); Mean Corpuscular HGB CONC 33.8 g/dL (32.0-36.0); Mean Corpuscular Hemoglobin 29.6 pg (27.0-31.0); Mean Corpuscular Volume 87.6 fl (78.0-98.0); Mean Platelet Volume 8.5 fL (7.4-10.4); Platelet Count 78 10x3/uL (130-400); RBC Distribution Width 16.7 % (11.5-14.5); Red Blood Cell (RBC) Count 2.56 mill/uL (4.70-6.10)
[2022-09-29 04:53] LABS: Anion Gap 20 mmol/L (10-20); BUN (Urea Nitrogen) 20 mg/dL (8.4-25.7); Calc. Creatinine Clearance 20 mL/min (70-130); Calcium 8.6 mg/dL (7.8-10.44); Carbon Dioxide 21 mmol/L (23-31); Chloride 103 mmol/L (98-107); Estimated GFR 16; Glucose 179 mg/dL (83-110); Potassium 4.7 mmol/L (3.5-5.1); Sodium 139 mmol/L (136-145)
[2022-09-29] MEDS: HumaLOG 300 UNITS/3 ML VIAL SC PRN (05:05)
[2022-09-29 07:30] LABS: Vancomycin, Random 19.5 ug/mL (See Comment)
[2022-09-29] MEDS ORDERED: VANCOMYCIN PERITONEAL DIALYSIS SLIDING SCALE FS SCH (07:45)
[2022-09-29] MEDS ORDERED: Vancomycin Diaylsis Sliding Scale (Wt 71-99) FS SCH (07:45)
[2022-09-29] MEDS ORDERED: Vancomycin HCl 500 MG in Sodium Chloride 0.9% 100 ML IVPB SCH (08:00)
[2022-09-29] MEDS ORDERED: Heparin 10,000 UNITS/ 10 ML VIAL ONE (08:36)
[2022-09-29] MEDS: Calcitriol 0.25 MCG CAP PO SCH ×2 (09:03→20:36)
[2022-09-29] MEDS: Aspirin Chewable 81 MG TAB PO SCH (09:03)
[2022-09-29] MEDS: HumuLIN 70/30 100 Unit/ ml Vial SC SCH ×2 (09:03→21:27)
[2022-09-29] MEDS: Magnesium Oxide 400 MG TAB PO SCH (09:04)
[2022-09-29] MEDS: Metoprolol Tartrate 25 MG TAB PO SCH ×2 (09:05→20:36)
[2022-09-29] MEDS: Pantoprazole 40 MG VIAL IVP SCH (09:31)
[2022-09-29] MEDS: Gentamicin TOPICAL Ointment 0.1% 15 gm Tube TOP SCH (12:30)
[2022-09-29] MEDS ORDERED: Morphine 2 MG/ML VIAL SLOW IVP PRN (15:23)
[2022-09-29] MEDS ORDERED: Morphine 2 MG/ML VIAL SLOW IVP SCH (15:30)
[2022-09-29] MEDS: Levothyroxine Sodium 125 MCG TAB PO SCH (16:00)
[2022-09-29] MEDS ORDERED: Vancomycin HCl 750 MG in Sodium Chloride 0.9% 250 ML 250 ML IVPB SCH (17:00)
[2022-09-29] MEDS: NOREPINEPHRINE 8 MG/250 ML-D5W 250 ML IVPB SCH (20:32)
[2022-09-29] MEDS: Cefepime 1 GM in Sodium Chloride 0.9% 100 ML IVPB SCH (20:32)
[2022-09-29] MEDS: Atorvastatin Calcium 40 MG TAB PO SCH (20:36)
[2022-09-29] MEDS: Mirtazapine 15 MG TAB PO SCH (20:37)
[2022-09-29] MEDS: Saccharomyces boulardii 250 MG CAP PO SCH (20:37)
[2022-09-29] MEDS: Morphine 2 MG/ML VIAL SLOW IVP PRN (23:25)
[2022-09-30] MEDS: Morphine 2 MG/ML VIAL SLOW IVP PRN ×4 (04:08→19:21)
[2022-09-30 04:14] LABS: #Eosinphils 0.2 thou/uL (0.0-0.7); #Lymphocytes 0.7 thou/uL (1.20-3.40); #Monocytes 0.9 thou/uL (0.11-0.59); #Neutrophils 7.9 thou/uL (1.40-6.50); %Eosinophils 2.5 % (0.0-10.0); %Lymphocytes 7.5 % (21.0-51.0); %Monocytes 9.6 % (0.0-10.0); %Neutrophils 80.5 % (42.0-75.0); Hemoglobin 6.2 g/dL (14.0-18.0); Mean Corpuscular HGB CONC 33.5 g/dL (32.0-36.0); Mean Corpuscular Volume 86.6 fl (78.0-98.0); Mean Platelet Volume 8.1 fL (7.4-10.4); Platelet Count 60 10x3/uL (130-400); RBC Distribution Width 16.7 % (11.5-14.5); Red Blood Cell (RBC) Count 2.14 mill/uL (4.70-6.10); White Blood Cell (WBC) Count 9.8 10x3/uL (4.8-10.8)
[2022-09-30 04:30] LABS: Anion Gap 19 mmol/L (10-20); BUN (Urea Nitrogen) 18 mg/dL (8.4-25.7); Calc. Creatinine Clearance 25 mL/min (70-130); Carbon Dioxide 23 mmol/L (23-31); Chloride 100 mmol/L (98-107); Estimated GFR 21; Glucose 167 mg/dL (83-110); Potassium 3.5 mmol/L (3.5-5.1); Sodium 138 mmol/L (136-145)
[2022-09-30] MEDS: Metoprolol Tartrate 25 MG TAB PO SCH (07:59)
[2022-09-30] MEDS: Pantoprazole 40 MG VIAL IVP SCH (07:59)
[2022-09-30] MEDS: Polyethylene Glycol 3350 17 GM Packet PO SCH (08:00)
[2022-09-30] MEDS: Magnesium Oxide 400 MG TAB PO SCH (08:00)
[2022-09-30] MEDS: Aspirin Chewable 81 MG TAB PO SCH (08:00)
[2022-09-30] MEDS: HumuLIN 70/30 100 Unit/ ml Vial SC SCH (08:36)
[2022-09-30] MEDS: Gentamicin TOPICAL Ointment 0.1% 15 gm Tube TOP SCH (08:36)
[2022-09-30] MEDS ORDERED: Lorazepam 2 MG/ML VIAL SLOW IVP PRN (10:50)
[2022-09-30] MEDS: Calcitriol 0.25 MCG CAP PO SCH (11:38)
[2022-09-30] MEDS ORDERED: Piperacillin/Tazobactam 2.25 GM in Sodium Chloride 0.9% 100 ML IVPB SCH (14:00)
[2022-09-30 15:30] VITALS: BMI 27.8
[2022-09-30 16:54] VITALS: BP 110/59; TEMP 98.3
== END 2022-09-30 19:30 | disposition hospice, inpatient (51) | DRG 919 ==
LOC: ERS 17:41 → T4-A 20:00 → OBSVTOIN 09-19 08:26 → NEURO 09-21 20:41 → CCU 09-23 22:42 → T4-A 09-30 12:37
PROVIDERS: ADMIT Student in an Organized Health Care Education/Training Program; ATTEND Internal Medicine
PROC: 3E1M39Z Irrigation of Peritoneal Cavity using Dialysate, Percutaneous Approach (ICD-10-PCS; principal; 2022-09-18)
PROC: 4A133R1 Monitoring of Arterial Saturation, Peripheral, Percutaneous Approach (ICD-10-PCS; 2022-09-23)
PROC: 0BH17EZ Insertion of Endotracheal Airway into Trachea, Via Natural or Artificial Opening (ICD-10-PCS; 2022-09-23)
PROC: 5A1955Z Respiratory Ventilation, Greater than 96 Consecutive Hours (ICD-10-PCS; 2022-09-23)
PROC: 02HV33Z Insertion of Infusion Device into Superior Vena Cava, Percutaneous Approach (ICD-10-PCS; 2022-09-24)
PROC: B548ZZA Ultrasonography of Superior Vena Cava, Guidance (ICD-10-PCS; 2022-09-24)
PROC: 5A1D70Z Performance of Urinary Filtration, Intermittent, Less than 6 Hours Per Day (ICD-10-PCS; 2022-09-24)
PROC: 3E033XZ Introduction of Vasopressor into Peripheral Vein, Percutaneous Approach (ICD-10-PCS; 2022-09-24)
PROC: 5A09357 Assistance with Respiratory Ventilation, Less than 24 Consecutive Hours, Continuous Positive Airway Pressure (ICD-10-PCS; 2022-09-29)
DX: T85.71XA Infection and inflammatory reaction due to peritoneal dialysis catheter, initial encounter (principal); A41.9 Sepsis, unspecified organism; K65.9 Peritonitis, unspecified; N18.6 End stage renal disease; J96.01 Acute respiratory failure with hypoxia; J18.9 Pneumonia, unspecified organism; E87.1 Hypo-osmolality and hyponatremia; I13.2 Hypertensive heart and chronic kidney disease with heart failure and with stage 5 chronic kidney disease, or end stage renal disease; E87.20 Acidosis, unspecified; R18.8 Other ascites; J98.11 Atelectasis; G93.49 Other encephalopathy; I50.32 Chronic diastolic (congestive) heart failure; E11.649 Type 2 diabetes mellitus with hypoglycemia without coma; D63.1 Anemia in chronic kidney disease; Z51.5 Encounter for palliative care; Y83.8 Other surgical procedures as the cause of abnormal reaction of the patient, or of later complication, without mention of misadventure at the time of the procedure; K74.60 Unspecified cirrhosis of liver; G47.33 Obstructive sleep apnea (adult) (pediatric); E78.5 Hyperlipidemia, unspecified; E03.9 Hypothyroidism, unspecified; D69.6 Thrombocytopenia, unspecified; E87.6 Hypokalemia; E11.22 Type 2 diabetes mellitus with diabetic chronic kidney disease; K59.01 Slow transit constipation; E83.39 Other disorders of phosphorus metabolism; E11.51 Type 2 diabetes mellitus with diabetic peripheral angiopathy without gangrene; E11.65 Type 2 diabetes mellitus with hyperglycemia; Z87.891 Personal history of nicotine dependence; Z88.6 Allergy status to analgesic agent; Z88.8 Allergy status to other drugs, medicaments and biological substances; Z79.82 Long term (current) use of aspirin; Z79.890 Hormone replacement therapy; Z79.899 Other long term (current) drug therapy; Z79.4 Long term (current) use of insulin; Z95.1 Presence of aortocoronary bypass graft; Z99.2 Dependence on renal dialysis; Z86.16 Personal history of COVID-19; W06.XXXA Fall from bed, initial encounter
CPT/HCPCS: 36415; 36416; 36600; 70450; 71045; 72125; 74176; 74177; 80048; 80053; 80069; 80202; 82140; 82550; 82805; 83605; 83735; 83880; 84100; 84484; 85025; 85027; 85060; 86706; 86850; 86900; 86901; 87040; 87070; 87205; 87340; 89051; 90935; 90945; 93005; 93010; 93306; 94002; 94003; 94640; 94660; 99285; A4217; C9113; G0257; G0378; J0692; J1630; J1642; J1644; J1815; J2060; J2185; J2272; J2310; J2704; J3010; J3370; J3371; J3490; J7050; J7611; J7620; P9047; Q5105; Q9963; Q9967

== ENCOUNTER 2022-09-30 19:55 | Inpatient (IN) | payer OTHER ==
[2022-09-30] MEDS ORDERED: Bisacodyl 10 MG SUPP PR PRN (20:58)
[2022-09-30] MEDS ORDERED: Scopolamine 1.5 mg/72 hour Patch TOP PRN (21:00)
[2022-09-30] MEDS ORDERED: Hyoscyamine SL 0.125 MG TAB SL PRN (21:00)
[2022-09-30] MEDS ORDERED: Senokot S 8.6-50 MG TAB PO PRN (21:00)
[2022-09-30] MEDS ORDERED: Ondansetron PF 4 MG/2 ML Vial IVP PRN (21:00)
[2022-09-30] MEDS ORDERED: Acetaminophen 650 MG Suppository PR PRN (21:00)
[2022-09-30] MEDS ORDERED: Ondansetron ODT 4 MG TAB PO PRN (21:00)
[2022-09-30] MEDS ORDERED: Haloperidol Lactate 5 MG/ML VIAL SLOW IVP PRN (21:00)
[2022-09-30] MEDS: Lorazepam 2 MG/ML VIAL SLOW IVP PRN (23:33)
[2022-10-01] MEDS: Lorazepam 2 MG/ML VIAL SLOW IVP PRN ×2 (11:07→23:08)
[2022-10-01] MEDS: Morphine 2 MG/ML VIAL SLOW IVP PRN (23:07)
[2022-10-02] MEDS: Morphine 2 MG/ML VIAL SLOW IVP PRN ×2 (10:10→11:55)
[2022-10-02] MEDS: Morphine 2 MG/ML VIAL SLOW IVP SCH ×2 (16:50→20:03)
[2022-10-02] MEDS: Lorazepam 2 MG/ML VIAL SLOW IVP PRN (22:26)
[2022-10-03] MEDS: Morphine 2 MG/ML VIAL SLOW IVP SCH ×9 (01:34→23:59)
[2022-10-03] MEDS: Lorazepam 2 MG/ML VIAL SLOW IVP PRN ×2 (08:51→15:31)
[2022-10-03] MEDS ORDERED: Scopolamine 1.5 mg/72 hour Patch TOP SCH (09:00)
[2022-10-03] MEDS: Morphine 2 MG/ML VIAL SLOW IVP PRN (11:29)
[2022-10-03] MEDS ORDERED: Atropine Sulfate 1% Ophth Soln 5 ml Bottle PO PRN (12:23)
[2022-10-03] MEDS: Ipratropium/Albuterol 3 ML NEB NEB SCH ×2 (14:16→21:52)
[2022-10-04] MEDS: Morphine 2 MG/ML VIAL SLOW IVP SCH ×6 (02:04→13:26)
[2022-10-04] MEDS: Ipratropium/Albuterol 3 ML NEB NEB SCH ×3 (06:58→22:37)
[2022-10-04 08:16] VITALS: TEMP 100.5
[2022-10-04] MEDS: Morphine 2 MG/ML VIAL SLOW IVP PRN ×3 (09:18→16:59)
[2022-10-04] MEDS: Lorazepam 2 MG/ML VIAL SLOW IVP PRN ×3 (10:08→16:58)
[2022-10-04] MEDS: Lorazepam 2 MG/ML VIAL SLOW IVP SCH ×11 (12:58→22:49)
[2022-10-04] MEDS ORDERED: Morphine 4 MG/ML VIAL SLOW IVP SCH (14:00)
[2022-10-04] MEDS: Morphine 4 MG/ML VIAL SLOW IVP SCH ×9 (15:17→22:49)
[2022-10-04 21:13] VITALS: BP 52/30
== END 2022-10-04 20:49 | disposition expired | DRG 951 ==
LOC: T4-A 19:55
PROVIDERS: ADMIT Internal Medicine Nephrology; ATTEND Internal Medicine Nephrology
DX: Z51.5 Encounter for palliative care (principal); N18.6 End stage renal disease; A41.9 Sepsis, unspecified organism; I13.2 Hypertensive heart and chronic kidney disease with heart failure and with stage 5 chronic kidney disease, or end stage renal disease; E87.20 Acidosis, unspecified; E03.9 Hypothyroidism, unspecified; E78.5 Hyperlipidemia, unspecified; E11.22 Type 2 diabetes mellitus with diabetic chronic kidney disease; E11.51 Type 2 diabetes mellitus with diabetic peripheral angiopathy without gangrene; K74.60 Unspecified cirrhosis of liver; E11.65 Type 2 diabetes mellitus with hyperglycemia; I50.9 Heart failure, unspecified; Z99.2 Dependence on renal dialysis; Z95.1 Presence of aortocoronary bypass graft; Z79.4 Long term (current) use of insulin; Z79.890 Hormone replacement therapy; Z79.82 Long term (current) use of aspirin; Z79.899 Other long term (current) drug therapy
CPT/HCPCS: 94640; J2060; J2270; J2272; J7620